=== PATIENT | male | born 1955 | race Caucasian/White ===

== ENCOUNTER 2022-07-17 08:06 | Outpatient (REF) | payer OTHER, SELFPAY ==
[2022-07-17 08:30] LABS: Hematocrit 42.2 % (42.0-52.0); Hemoglobin 13.9 g/dl (14.0-18.0); Mean Corpuscular HGB Conc 32.9 g/dl (31.0-36.0); Mean Corpuscular Hemoglobin 32.1 pg (27.0-33.0); Mean Corpuscular Volume 97.5 fL (80.0-98.0); Mean Platelet Volume 9.1 fL (9.4-12.4); Platelet Count 220 X10*3/uL (160-400); Red Blood Count 4.33 X10*6/uL (4.60-5.80); Red Cell Distribution Width 12.5 % (11.0-16.0); White Blood Count 5.2 X10*3/uL (4.8-10.8)
[2022-07-17 09:20] LABS: Alanine Aminotransferase 17 U/L (0-40); Albumin Level 4.1 g/dL (3.5-5.0); Alkaline Phosphatase 88 U/L (39-117); Anion Gap 12 (12-20); Aspartate Amino Transferase 20 U/L (5-37); Bilirubin Total 0.6 mg/dL (0.0-1.0); Blood Urea Nitrogen 33 mg/dL (9-16); Calcium 9.1 mg/dL (8.4-10.2); Carbon Dioxide 28 mmol/L (22-29); Chloride 101 mmol/L (96-108); Cholesterol 174 mg/dL; Estimated Glomerular Filt Rate 55; Glucose Fasting 148 mg/dL (60-99); HDL Cholesterol 46 mg/dL; LDL Cholesterol Calculated 103 mg/dl; Potassium 4.6 mmol/L (3.3-5.1); Sodium 136 mmol/L (135-145); TSH reflex Free T4 1.39 uIU/mL (0.32-4.0); Total Protein 6.5 g/dL (6.5-8.0); Triglycerides 125 mg/dL
[2022-07-17 10:05] LABS: Creatinine Urine 224.93 mg/dL; Microalbum/Creatinine Ratio Ur 7.5 ug/mg cr
== END 2022-07-17 08:07 | disposition home or self-care (01) ==
LOC: HO.LAB 08:06
PROVIDERS: PCP Physician Assistant; Visit Provider Physician Assistant
DX: E11.65 Type 2 diabetes mellitus with hyperglycemia (principal); I10 Essential (primary) hypertension
CPT/HCPCS: 36415; 80053; 80061; 82043; 84443; 85027

== ENCOUNTER → 2022-11-01 11:09 | Outpatient (BNVA) | payer OTHER, SELFPAY | PROVIDERS: PCP Physician Assistant; Referring Provider Physician Assistant; Visit Provider Nurse Practitioner Family | DX: Z13.89 Encounter for screening for other disorder (principal) ==

== ENCOUNTER → 2022-11-02 09:58 | Outpatient (BNVA) | payer OTHER, SELFPAY | PROVIDERS: PCP Physician Assistant; Visit Provider Dietitian, Registered | DX: E11.65 Type 2 diabetes mellitus with hyperglycemia (principal) | CPT/HCPCS: 97802 ==

== ENCOUNTER → 2022-12-07 11:26 | Outpatient (BNVA) | payer OTHER, SELFPAY | PROVIDERS: PCP Physician Assistant; Visit Provider Dietitian, Registered | DX: E11.65 Type 2 diabetes mellitus with hyperglycemia (principal); Z71.3 Dietary counseling and surveillance | CPT/HCPCS: 97803 ==

== ENCOUNTER 2022-12-25 07:30 | Outpatient (REF) | payer OTHER, SELFPAY ==
[2022-12-25 08:58] LABS: Hematocrit 36.1 % (42.0-52.0); Hemoglobin 12.4 g/dl (14.0-18.0); Mean Corpuscular HGB Conc 34.3 g/dl (31.0-36.0); Mean Corpuscular Hemoglobin 33.2 pg (27.0-33.0); Mean Corpuscular Volume 96.5 fL (80.0-98.0); Mean Platelet Volume 9.7 fL (9.4-12.4); Platelet Count 221 X10*3/uL (160-400); Red Blood Count 3.74 X10*6/uL (4.60-5.80); Red Cell Distribution Width 12.7 % (11.0-16.0); White Blood Count 5.6 X10*3/uL (4.8-10.8)
[2022-12-25 09:34] LABS: Alanine Aminotransferase 20 U/L (0-40); Albumin Level 3.9 g/dL (3.5-5.0); Alkaline Phosphatase 82 U/L (39-117); Anion Gap 10 (12-20); Aspartate Amino Transferase 20 U/L (5-37); Bilirubin Total 0.4 mg/dL (0.0-1.0); Blood Urea Nitrogen 37 mg/dL (9-16); Calcium 9.2 mg/dL (8.4-10.2); Carbon Dioxide 30 mmol/L (22-29); Chloride 106 mmol/L (96-108); Cholesterol 145 mg/dL; Estimated Glomerular Filt Rate 59; Glucose Fasting 146 mg/dL (60-99); HDL Cholesterol 34 mg/dL; LDL Cholesterol Calculated 89 mg/dl; Potassium 4.9 mmol/L (3.3-5.1); Sodium 141 mmol/L (135-145); Total Protein 6.2 g/dL (6.5-8.0); Triglycerides 110 mg/dL
[2022-12-25 09:55] LABS: TSH reflex Free T4 1.11 uIU/mL (0.32-4.0)
[2022-12-25 10:03] LABS: Creatinine Urine 149.29 mg/dL
[2022-12-29 16:38] LABS: Glutamic acid decarboxylase Ab <5 IU/mL (<5)
== END 2022-12-25 07:31 | disposition home or self-care (01) ==
LOC: HO.LAB 07:30
PROVIDERS: PCP Physician Assistant; Visit Provider Physician Assistant
DX: E11.65 Type 2 diabetes mellitus with hyperglycemia (principal); E78.2 Mixed hyperlipidemia; I10 Essential (primary) hypertension
CPT/HCPCS: 36415; 80053; 80061; 82043; 84443; 85027; 86341

== ENCOUNTER → 2023-01-31 10:53 | Outpatient (BNVA) | payer OTHER, SELFPAY | PROVIDERS: PCP Physician Assistant; Visit Provider Dietitian, Registered | DX: E11.65 Type 2 diabetes mellitus with hyperglycemia (principal) | CPT/HCPCS: 97803 ==

== ENCOUNTER 2023-06-20 06:02 | Outpatient (REF) | payer OTHER, SELFPAY ==
[2023-06-20 07:40] LABS: Hemoglobin 12.9 g/dl (14.0-18.0); Mean Corpuscular HGB Conc 33.1 g/dl (31.0-36.0); Mean Corpuscular Hemoglobin 32.4 pg (27.0-33.0); Mean Platelet Volume 9.9 fL (9.4-12.4); Platelet Count 228 X10*3/uL (160-400); Red Blood Count 3.98 X10*6/uL (4.60-5.80); Red Cell Distribution Width 12.4 % (11.0-16.0); White Blood Count 5.3 X10*3/uL (4.8-10.8)
[2023-06-20 08:33] LABS: Alanine Aminotransferase 17 U/L (0-40); Albumin Level 4.1 g/dL (3.5-5.0); Alkaline Phosphatase 80 U/L (39-117); Anion Gap 15 (12-20); Aspartate Amino Transferase 22 U/L (5-37); Bilirubin Total 0.3 mg/dL (0.0-1.0); Blood Urea Nitrogen 20 mg/dL (9-16); Calcium 9.3 mg/dL (8.4-10.2); Carbon Dioxide 26 mmol/L (22-29); Chloride 102 mmol/L (96-108); Cholesterol 155 mg/dL (<200); Estimated Glomerular Filt Rate > 60; Glucose Fasting 193 mg/dL (60-99); HDL Cholesterol 38 mg/dL (>40); LDL Cholesterol Calculated 92 mg/dL (<100); Potassium 4.1 mmol/L (3.3-5.1); Sodium 139 mmol/L (135-145); Total Protein 6.6 g/dL (6.5-8.0); Triglycerides 126 mg/dL (<150)
== END 2023-06-20 06:03 | disposition home or self-care (01) ==
LOC: HO.LAB 06:02
PROVIDERS: PCP Physician Assistant; Visit Provider Physician Assistant
DX: E11.65 Type 2 diabetes mellitus with hyperglycemia (principal); I10 Essential (primary) hypertension; E78.2 Mixed hyperlipidemia
CPT/HCPCS: 36415; 80053; 80061; 85027

== ENCOUNTER 2023-06-21 08:21 | Outpatient (AMB) | payer OTHER, SELFPAY ==
[2023-06-21 08:28] VITALS: BP 134/72; PULSE 81; O2SAT 98; BMI 33.0
--- NOTE | 2023-06-21 08:28 | A.OFFPC_ITS ---
Vital Signs 06/21/23 08:28 Height 5 ft 3.5 in Weight 189 lb BMI 33.0 BP 134/72 Blood Pressure Location Lt brachial Position Sitting Pulse 81 Pulse Source Pulse Oximeter Pulse Oximetry (%) 98 Oxygen Delivery Method Room Air Intake Visit Reasons: Follow up for Diabetes Allergies ciprofloxacin [CIPROFLOXACIN] Allergy (Severe, Verified 06/21/23 08:42) Anaphylaxis naproxen Adverse Reaction (Mild, Verified 06/21/23 08:42) Abdominal Pain Medication List - Last Reconciled 06/21/23 by Trey Lin PA-C albuterol sulfate 90 mcg/actuation 2 puffs inhalation Q6H PRN 30 days atorvastatin 40 mg PO DAILY 90 days bisacodyl (Dulcolax (bisacodyl)) 10 mg (2 x 5 mg) PO ONCE 1 day blood sugar diagnostic (FreeStyle Lite Strips) Testing once a day blood-glucose meter (FreeStyle [place] kit) Testing once a day fluticasone propionate 50 mcg/actuation (Allergy Relief (fluticasone)) 2 sprays intranasal DAILY hydrochlorothiazide 25 mg PO DAILY 90 days metformin 1,500 mg (1.5 x 1,000 mg) PO DAILY 90 days olmesartan 40 mg PO DAILY 90 days omeprazole 40 mg PO DAILY 90 days pioglitazone (Actos) 15 mg PO DAILY 90 days polyethylene glycol 3350 (Miralax) 238 grams PO ONCE Tobacco use date assessed: 12/27/22 Fall risk assessment: No Falls in past year Last assessed Fall Risk: 06/21/23 Dental Screening Dental Screen Date: 06/21/23 Did you have a dental visit in the last 12 months?: No Did you have a dental problem in the last 6 months where you did not have access to dental care?: No Was dental information given to patient?: No HPI Follow up for Diabetes HPI Details Patient is a 68-year-old male here today for follow-up visit? Patient has a past medical history significant for type 2 diabetes, hypertension, obesity, hyperlipidemia. Concerns--> .. Type 2 diabetes:? At last visit we discussed his? elevated A1c and increased his metforming to a 1000 b.i.d. he reports his sugars have been much better per patient. Unfortunately A1c elevated at 8.1 from 7.5. PLAN:? Will increase his metformin to a 1000 b.i.d.. .. Hypertension:? Blood pressure today in office acceptable..? He denies any headaches, chest discomforts are dizziness.? He does not monitor his blood pressure at home and will start doing so. .. Obesity: Has lost weight since last office visit? Patient does understand his BMI is over 30 will work on being more physically active and adapting to better eating habits to reduce weight .. GERD: Continues on PPI, has been avoiding? GI irritant foods. [facility] Medical History Diverticulitis Obstructive sleep apnea (adult) (pediatric) Obesity Diabetes mellitus type II, controlled Inflammatory arthritis Osteoarthritis of hand Erectile dysfunction Decreased libido Elevated prostate specific antigen [PSA] Umbilical hernia Essential (primary) hypertension Gastro-esophageal reflux disease without esophagitis Type 2 diabetes mellitus with hyperglycemia Generalized anxiety disorder Basal cell carcinoma of skin Family History Sister Intestinal cancer Mother No problems noted. Father No problems noted. Paternal Grandfather No problems noted. 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 1. Little interest or pleasure in doing things: not at all 2. Feeling down, depressed, or hopeless: not at all 3. Trouble falling or staying asleep, or sleeping too much: not at all 4. Feeling tired or having little energy: not at all 5. Poor appetite or overeating: not at all 6. Feeling bad about yourself - or that you are a failure or have let yourself or your family down: not at all 7. Trouble concentrating on things, such as reading the newspaper or watching television: not at all 8. Moving or speaking so slowly that other people could have noticed. Or the opposite - being so fidgety or restless that you have been moving around a lot more than usual: not at all 9. Thoughts that you would be better off or of hurting yourself in some way: not at all Total score: 0 Depression Screening Interpretation: Negative Depression Screening Done: Yes 62721 - PHQ-9 Billing: Yes Source: Developed by Drs. Refugio Eduardo, Mya Salamanca, Reid Inman and colleagues, with an educational sahil from [employer]. Thrive Questionnaire Date Thrive assessed: 12/27/22 AUDIT C Alcohol Use Questionnaire (AUDIT-C) 1. How often do you have a drink containing alcohol?: 2-3 times a week 2. How many drinks containing alcohol do you have on a typical day when you are drinking?: 1 or 2 3. How often do you have six or more drinks on one occasion?: Never Total Score: 3 ELVIE-7 AMB Questionnaire ELVIE-7 Date ELVIE - 7 assessed: 12/27/22 Source: Developed by Drs. Refugio Eduardo, Mya Salamanca, Reid Inman and colleagues, with an educational sahil from [employer]. ACT Questionnaire In the past 4 weeks, how much of the time did your asthma keep you from getting as much done at work, school or at home?: None of the time During the past 4 weeks, how often have you had shortness of breath?: Not at all During the past 4 weeks, how often did your asthma symptoms wake you up at night or earlier than usual in the morning?: Not at all During the past 4 weeks, how often have you had to use your rescue inhaler or nebulizer medication?: Not at all How would you rate your asthma control during the past 4 weeks?: Completely controlled ACT Interpretation: Negative Score: 25 Review of Systems Const Denies headache(s) Eyes Denies loss of vision ENT Denies vertigo, Denies dizziness, Denies headache(s) and Denies sore throat Card Denies chest pain, Denies leg edema and Denies lightheadedness Resp Denies cough, Denies hemoptysis and Denies wheezing GI Denies abdominal pain, Denies melena, Denies constipation, Denies diarrhea and Denies vomiting Denies dysuria, Denies urinary frequency and Denies urinary urgency Musc Denies arthralgias, Denies joint swelling, Denies numbness and Denies tingling Neuro Denies Abnormal speech present, Denies behavioral changes, Denies vertigo, Denies dizziness, Denies headache(s), Denies loss of vision, Denies memory loss, Denies numbness and Denies tingling Psych Denies anxiety, Denies behavioral changes, Denies depression, Denies memory loss and Denies panic attacks Aly/Lymph Denies easy bleeding and Denies easy bruising Aller/Immun Denies wheezing Physical exam (Primary Care) Vital Signs: Last Vital Signs Pulse 81 06/21/23 08:28 BP 134/72 06/21/23 08:28 Pulse Ox 98 06/21/23 08:28 Oxygen Delivery Method Room Air 06/21/23 08:28 BMI result Body Mass Index 33.0 Tobacco/Smoking Status: Tobacco use Status Tobacco use date assessed 12/27/22 06/21/23 08:29 Patient Tobacco Use Status Former Tobacco user 06/21/23 08:29 Tobacco use type Cigarette 06/21/23 08:29 e-Cigarette/Vaping Use Never Used 06/21/23 08:29 PHQ-9: PHQ-9 Score PHQ-9: Total score 0 06/21/23 08:29 Depression Screening Interpretation: Negative Thrive Assessment: Date of Thrive Assessment Date Thrive assessed 12/27/22 06/21/23 08:29 Const General: healthy appearing, no acute distress, alert and awake Nutritional Appearance: well nourished Orientation/consciousness: oriented to person, oriented to place and oriented to time HENMT Ears: TM's normal bilaterally General nose exam: Normal nasal mucous membranes and turbinates present Eyes Conjunctivae: conjunctivae normal Sclerae: sclerae normal Pupils: Equal, round and reactive pupils present Neck Neck: Yes no lymphadenopathy and Yes no JVD Thyroid: Thyroid normal Carotids: no bruits Resp Effort & Inspection: normal respiratory effort and not tachypneic Auscultation: no crackles, no rales, no rhonchi and no wheezes Cardio Rate: regular rate Rhythm: regular rhythm Heart sounds: no murmurs and normal S1 and S2 GI Palpation (GI): Soft to palpation, nontender, no hepatomegaly and no splenomegaly Auscultation: normal bowel sounds Skin General skin exam: no rashes or lesions noted and dry skin Neuro General: oriented to person, oriented to place and oriented to time Cranial nerves: Yes Equal, round and reactive pupils present Speech: No Abnormal speech present Gait exam (Neuro): Normal gait present Motor exam (neuro): no tremor noted Extrem Right upper extremity: full ROM Left upper extremity: full ROM Right lower extremity: full ROM; no edema Left lower extremity: full ROM; no edema Psych Mental Status: mental status grossly normal Speech and movement: Normal speech and movement present Affect: normal affect Attitude: cooperative Thought process: Normal thought process present Assessment and Plan Assessment & Plan (1) HTN (hypertension): Code(s): I10 - Essential (primary) hypertension Qualifiers: Hypertension type: primary hypertension Qualified Code(s): I10 - Essential (primary) hypertension Plan: Patient's blood pressure acceptable today office will continue current dose of antihypertensive medication with goal blood pressure to be below 140/90 (2) DMII (diabetes mellitus, type 2): Code(s): E11.9 - Type 2 diabetes mellitus without complications Qualifiers: Diabetes mellitus terminal superintendent insulin use: without fpc use Diabetes mellitus complication status: with hyperglycemia Qualified Code(s): E11.65 - Type 2 diabetes mellitus with hyperglycemia Plan: Patient's type 2 diabetes suboptimally controlled , todays A1c - 8.1 from 7.5 \will increase his metformin to 1000 b.i.d for better diabetes control... with goal A1c to be below 7.0 (3) HLD (hyperlipidemia): Code(s): E78.5 - Hyperlipidemia, unspecified Qualifiers: Hyperlipidemia type: mixed hyperlipidemia Qualified Code(s): E78.2 - Mixed hyperlipidemia Plan: Patient's lipid panel showing acceptable LDL and total cholesterol. Will continue statin therapy with goal LDL to be below 100. (4) Asthma: Code(s): J45.909 - Unspecified asthma, uncomplicated Qualifiers: Asthma severity: mild Asthma persistence: intermittent Asthma complication type: uncomplicated Qualified Code(s): J45.20 - Mild intermittent asthma, uncomplicated Plan: Has been well controlled lately. Does have asthma exacerbations during springtime. He does have an albuterol inhaler available to him. Continues with allergy medication. (5) Obese: Code(s): E66.9 - Obesity, unspecified Qualifiers: Obesity type: due to excess calories Obesity classification: adult class 2 (BMI 35 - 39.9) Serious obesity comorbidity presence: with serious comorbidity Body mass index: BMI 35.0-35.9 Qualified Code(s): E66.01 - Morbid (severe) obesity due to excess calories; Z68.35 - Body mass index [BMI] 35.0- 35.9, adult Plan: Patient has fortunately been able to lose weight due to better eating habits. Continues to follow a medical library assistant. He does understand his BMI remains above 30 will continue working on being more physically active to reduce his weight. Orders: Orders AMB Hemoglobin A1c Today Z13.9 - Encounter for screening, unspecified Lipid Panel 3 Months E78.2 - Mixed hyperlipidemia Microalbumin, Random (w Creat) 3 Months I10 - Essential (primary) hypertension Comprehensive [place]. Panel Fast 3 Months E11.65 - Type 2 diabetes mellitus with hyperglycemia Coding Level of Care Code Est Pt Level 4 (88984) Diagnoses Primary hypertension I10 Hypertension type: primary hypertension Type 2 diabetes mellitus with hyperglycemia, without long-term current use of insulin E11.65 Diabetes mellitus terminal superintendent insulin use: without terminal superintendent use Diabetes mellitus complication status: with hyperglycemia Mixed hyperlipidemia E78.2 Hyperlipidemia type: mixed hyperlipidemia Mild intermittent asthma without complication J45.20 Asthma severity: mild Asthma persistence: intermittent Asthma complication type: uncomplicated Class 2 severe obesity due to excess calories with serious comorbidity and body mass index (BMI) of 35.0 to 35.9 in adult E66.01; Z68.35 Obesity type: due to excess calories Obesity classification: adult class 2 (BMI 35 - 39.9) Serious obesity comorbidity presence: with serious comorbidity Body mass index: BMI 35.0-35.9
== END 2023-06-21 08:59 | disposition home or self-care (01) ==
PROVIDERS: PCP Physician Assistant; Visit Provider Physician Assistant
DX: E11.65 Type 2 diabetes mellitus with hyperglycemia (principal); E66.01 Morbid (severe) obesity due to excess calories; Z68.35 Body mass index [BMI] 35.0-35.9, adult; Z68.33 Body mass index [BMI] 33.0-33.9, adult; I10 Essential (primary) hypertension; E78.2 Mixed hyperlipidemia; J45.20 Mild intermittent asthma, uncomplicated
CPT/HCPCS: 99214

== ENCOUNTER 2023-07-26 08:27 | Outpatient (AMB) | payer OTHER, SELFPAY ==
[2023-07-26 08:38] VITALS: BMI 33.5
--- NOTE | 2023-07-26 08:38 | A.OFFVIS_ITS ---
Intake VS Expanded 07/26/23 08:38 Height 5 ft 3.5 in Weight 192 lb 3.889 oz BMI 33.5 Intake Visit Reasons: [id number] Allergies ciprofloxacin [CIPROFLOXACIN] Allergy (Severe, Verified 06/21/23 08:42) Anaphylaxis naproxen Adverse Reaction (Mild, Verified 06/21/23 08:42) Abdominal Pain Medication List - Last Reconciled 08/03/[address], LDN albuterol sulfate 90 mcg/actuation 2 puffs inhalation Q6H PRN 30 days atorvastatin 40 mg PO DAILY 90 days bisacodyl (Dulcolax (bisacodyl)) 10 mg (2 x 5 mg) PO ONCE 1 day blood sugar diagnostic (FreeStyle Lite Strips) Testing once a day blood-glucose meter (FreeStyle [place] kit) Testing once a day fluticasone propionate 50 mcg/actuation (Allergy Relief (fluticasone)) 2 sprays intranasal DAILY hydrochlorothiazide 25 mg PO DAILY 90 days metformin 1,500 mg (1.5 x 1,000 mg) PO DAILY 90 days multivitamin with iron 1 tab PO DAILY olmesartan 40 mg PO DAILY 90 days omeprazole 40 mg PO DAILY 90 days pioglitazone (Actos) 15 mg PO DAILY 90 days polyethylene glycol 3350 (Miralax) 238 grams PO ONCE HPI Nutrition Presentation Details Pt presents for MNT f/u for T2DM Pt reports doing well, working on diet modifications. Challenges: inc appetite for higher sugar foods at night food frequency fruits: 1-2 x/day dairy: 3-4 serving/d fish: 1/week beverages: water, milk , juice diluted with water Reports taking MVI daily Most Recent Diabetes Results: Microalb/Creat Ratio 6.0 ug/mg cr 12/25/22 Cholesterol 155 mg/dL (<200) 06/20/23 HDL Cholesterol 38 mg/dL (>40) L 06/20/23 Triglycerides 126 mg/dL (<150) 06/20/23 Creatinine 1.08 mg/dL (0.5-1.4) 06/20/23 Blood Urea Nitrogen 20 mg/dL (9-16) H 06/20/23 Sodium 139 mmol/L (135-145) 06/20/23 Potassium 4.1 mmol/L (3.3-5.1) 06/20/23 Chloride 102 mmol/L (96-108) 06/20/23 Carbon Dioxide 26 mmol/L (22-29) 06/20/23 Calcium 9.3 mg/dL (8.4-10.2) 06/20/23 AST 22 U/L (5-37) 06/20/23 ALT 17 U/L (0-40) 06/20/23 Total Protein 6.6 g/dL (6.5-8.0) 06/20/23 Albumin 4.1 g/dL (3.5-5.0) 06/20/23 [facility] Medical History Diverticulitis Obstructive sleep apnea (adult) (pediatric) Obesity Diabetes mellitus type II, controlled Inflammatory arthritis Osteoarthritis of hand Erectile dysfunction Decreased libido Elevated prostate specific antigen [PSA] Umbilical hernia Essential (primary) hypertension Gastro-esophageal reflux disease without esophagitis Type 2 diabetes mellitus with hyperglycemia Generalized anxiety disorder Basal cell carcinoma of skin Family History Sister Intestinal cancer Mother No problems noted. Father No problems noted. Paternal Grandfather No problems noted. 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 Used wt : 94 kg (10/2022) (weight dec to 87 kg on 07/2023) Est kcal as per MSJ: 1928 (40% carb, 30% fat/prot) Est fluid needs: 2350 ml/d (25 ml/kg bw) Rec fiber: increase to 8-10 g per day and gradually increase to 35 g or as tolerated Rec Na: < 2000 mg /d Educate patient on: (R= Reviewed, V = verbalizes understanding N/R= Needs review N/A= not applicable) * Food sources of carbohydrates and serving adequate serving sizes : R * Difference between complex carbohydrates and simple carbohydrates, role of f iber: R * Differences between fats (MUFA/PUFA/saturated fats, trans fats) and food sources of various fats: R * Food sources of sodium and salt and healthy modifications for heart health and kidney health: R * Vitamins and minerals: R * How to interpret food labels: R V * Healthy Plate method concept: R V * Physical activity: benefits and precaution: R V * hypoglycemia prevention and treatment: R Patient Instructions: Work on reducing your total carb as snack at bedtime to less than 30 g and include 1-2 oz of protein: example : yogurt with fruit or 1 cup of milk and 4 crackers iwth peanut butter or glucerna/hunger smart shake - see list of options listed Coding Level of Care Code Nutr Indiv Subseq (14973) Diagnoses Type 2 diabetes mellitus with hyperglycemia, without long-term current use of insulin E11.65 Diabetes mellitus complication status: with hyperglycemia Diabetes mellitus j2ee android developer insulin use: without j2ee android developer use Time Spent (min) 30
== END 2023-07-26 09:10 | disposition home or self-care (01) ==
PROVIDERS: PCP Physician Assistant; Visit Provider Dietitian, Registered
DX: E11.65 Type 2 diabetes mellitus with hyperglycemia (principal)

== ENCOUNTER → 2023-07-26 08:27 | Outpatient (BNVA) | payer OTHER, SELFPAY | PROVIDERS: PCP Physician Assistant; Visit Provider Dietitian, Registered | DX: E11.65 Type 2 diabetes mellitus with hyperglycemia (principal); Z71.3 Dietary counseling and surveillance | CPT/HCPCS: 97803 ==

== ENCOUNTER 2023-09-01 08:17 | Outpatient (AMB) | payer OTHER, SELFPAY ==
[2023-09-01 08:38] VITALS: BMI 33.2
--- NOTE | 2023-09-01 08:38 | A.OFFVIS_ITS ---
Intake VS Expanded 09/01/23 08:38 Height 5 ft 3.5 in Weight 190 lb 11.198 oz BMI 33.2 Intake Visit Reasons: T2DM/CONFIRMED Allergies ciprofloxacin [CIPROFLOXACIN] Allergy (Severe, Verified 06/21/23 08:42) Anaphylaxis naproxen Adverse Reaction (Mild, Verified 06/21/23 08:42) Abdominal Pain HPI Nutrition Presentation Details Pt presents for MNT for T2DM Today will review low sodium food options. Pt reports doing well overall. Most Recent Diabetes Results: Microalb/Creat Ratio 6.0 ug/mg cr 12/25/22 Cholesterol 155 mg/dL (<200) 06/20/23 HDL Cholesterol 38 mg/dL (>40) L 06/20/23 Triglycerides 126 mg/dL (<150) 06/20/23 Creatinine 1.08 mg/dL (0.5-1.4) 06/20/23 Blood Urea Nitrogen 20 mg/dL (9-16) H 06/20/23 Sodium 139 mmol/L (135-145) 06/20/23 Potassium 4.1 mmol/L (3.3-5.1) 06/20/23 Chloride 102 mmol/L (96-108) 06/20/23 Carbon Dioxide 26 mmol/L (22-29) 06/20/23 Calcium 9.3 mg/dL (8.4-10.2) 06/20/23 AST 22 U/L (5-37) 06/20/23 ALT 17 U/L (0-40) 06/20/23 Total Protein 6.6 g/dL (6.5-8.0) 06/20/23 Albumin 4.1 g/dL (3.5-5.0) 06/20/23 [facility] Medical History Diverticulitis Obstructive sleep apnea (adult) (pediatric) Obesity Diabetes mellitus type II, controlled Inflammatory arthritis Osteoarthritis of hand Erectile dysfunction Decreased libido Elevated prostate specific antigen [PSA] Umbilical hernia Essential (primary) hypertension Gastro-esophageal reflux disease without esophagitis Type 2 diabetes mellitus with hyperglycemia Generalized anxiety disorder Basal cell carcinoma of skin Family History Sister Intestinal cancer Mother No problems noted. Father No problems noted. Paternal Grandfather No problems noted. 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 [employer] Cognitive needs: No Hearing needs: No Vision needs: Yes (Glasses) Assessment & Plan Assessment & Plan (1) DMII (diabetes mellitus, type 2): Comment: A1c 7.3% (12/2022) 8.5% ( 07/2022) , BMI 33.3 (08/2023), 35.5 (10/2022) 33.5 (07/2023) Code(s): E11.9 - Type 2 diabetes mellitus without complications Qualifiers: Diabetes mellitus skilled nursing insulin use: without long term care phlebotomist use Diabetes mellitus complication status: with hyperglycemia Qualified Code(s): E11.65 - Type 2 diabetes mellitus with hyperglycemia Plan: Reviewed 2000 brandee meal plan and lower carb/nutrient dense bedtime snack options ? Used wt : 94 kg (10/2022) (weight dec to 87 kg on 07/2023) Est kcal as per MSJ: 1928 (40% carb, 30% fat/prot) Est fluid needs: 2350 ml/d (25 ml/kg bw) Rec fiber: increase to 8-10 g per day and gradually increase to 35 g or as tolerated Rec Na: < 2000 mg /d Educate patient on: (R= Reviewed, V = verbalizes understanding N/R= Needs review N/A= not applicable) * Food sources of carbohydrates and serving adequate serving sizes : R * Difference between complex carbohydrates and simple carbohydrates, role of fiber: R * Differences between fats (MUFA/PUFA/saturated fats, trans fats) and food sources of various fats: R * Food sources of sodium and salt and healthy modifications for heart health and kidney health: R * Vitamins and minerals: R , V * How to interpret food labels: R V * Healthy Plate method concept: R V * Physical activity: benefits and precaution: R V * hypoglycemia prevention and treatment: R, V Patient Instructions: Opt for foods with lower amount of sodium- choose unsalted or lightly salted crackers/snack foods Have at least 2 fruits a day in place of pastries Keep hydrated, choosing water, low sugar beverages Coding Level of Care Code Nutr Indiv Subseq (74125) Diagnoses Type 2 diabetes mellitus with hyperglycemia, without long-term current use of insulin E11.65 Diabetes mellitus long term care phlebotomist insulin use: without long term care phlebotomist use Diabetes mellitus complication status: with hyperglycemia Time Spent (min) 20
== END 2023-09-01 09:28 | disposition home or self-care (01) ==
PROVIDERS: PCP Physician Assistant; Visit Provider Dietitian, Registered
DX: E11.65 Type 2 diabetes mellitus with hyperglycemia (principal)

== ENCOUNTER → 2023-09-01 08:17 | Outpatient (BNVA) | payer OTHER, SELFPAY | PROVIDERS: PCP Physician Assistant; Visit Provider Dietitian, Registered | DX: E11.65 Type 2 diabetes mellitus with hyperglycemia (principal); Z71.3 Dietary counseling and surveillance | CPT/HCPCS: 97803 ==

== ENCOUNTER 2023-09-17 07:14 | Outpatient (REF) | payer OTHER, SELFPAY ==
[2023-09-17 08:24] LABS: Creatinine Urine 118.98 mg/dL; Microalbum/Creatinine Ratio Ur 9.2 ug/mg cr (<30)
[2023-09-17 09:26] LABS: Alanine Aminotransferase 19 U/L (0-40); Albumin Level 4.1 g/dL (3.5-5.0); Alkaline Phosphatase 71 U/L (39-117); Anion Gap 11 (12-20); Aspartate Amino Transferase 21 U/L (5-37); Bilirubin Total 0.4 mg/dL (0.0-1.0); Blood Urea Nitrogen 34 mg/dL (9-16); Calcium 9.6 mg/dL (8.4-10.2); Carbon Dioxide 29 mmol/L (22-29); Chloride 104 mmol/L (96-108); Cholesterol 162 mg/dL (<200); Estimated Glomerular Filt Rate > 60; Glucose Fasting 190 mg/dL (60-99); HDL Cholesterol 40 mg/dL (>40); LDL Cholesterol Calculated 92 mg/dL (<100); Potassium 4.7 mmol/L (3.3-5.1); Sodium 139 mmol/L (135-145); Total Protein 6.8 g/dL (6.5-8.0); Triglycerides 154 mg/dL (<150)
== END 2023-09-17 07:15 | disposition home or self-care (01) ==
LOC: HO.LAB 07:14
PROVIDERS: PCP Physician Assistant; Visit Provider Physician Assistant
DX: E11.65 Type 2 diabetes mellitus with hyperglycemia (principal); I10 Essential (primary) hypertension; E78.2 Mixed hyperlipidemia
CPT/HCPCS: 36415; 80053; 80061; 82043; 82570

== ENCOUNTER 2023-09-21 08:14 | Outpatient (AMB) | payer OTHER, SELFPAY ==
--- NOTE | 2023-09-21 08:23 | MHC.PC.OV ---
Vital Signs 09/21/23 08:26 Height 5 ft 3.5 in Weight 187 lb BMI 32.6 BP 120/72 Blood Pressure Location Lt brachial Position Sitting Pulse 75 Pulse Source Pulse Oximeter Pulse Oximetry (%) 100 Oxygen Delivery Method Room Air Intake Visit Reasons: 3 Month F/U Intake Note: Patient here for a 3 month follow up Community Services Officer Required: No Accompanied by: Self / Same As Patient Allergies ciprofloxacin [CIPROFLOXACIN] Allergy (Severe, Verified 09/21/23 08:51) Anaphylaxis naproxen Adverse Reaction (Mild, Verified 09/21/23 08:51) Abdominal Pain Medication List - Last Reconciled 09/21/23 by Trey Lin PA-C albuterol sulfate 90 mcg/actuation 2 puffs inhalation Q6H PRN 30 days atorvastatin 40 mg PO DAILY 90 days benzonatate 200 mg PO TID 5 days bisacodyl (Dulcolax (bisacodyl)) 10 mg (2 x 5 mg) PO ONCE 1 day blood sugar diagnostic (FreeStyle Lite Strips) Testing once a day blood-glucose meter (FreeStyle [place] kit) Testing once a day fluticasone propionate 50 mcg/actuation (Allergy Relief (fluticasone)) 2 sprays intranasal DAILY hydrochlorothiazide 25 mg PO DAILY 90 days metformin 1,500 mg (1.5 x 1,000 mg) PO DAILY 90 days multivitamin with iron 1 tab PO DAILY olmesartan 40 mg PO DAILY 90 days omeprazole 40 mg PO DAILY 90 days pioglitazone (Actos) 15 mg PO DAILY 90 days polyethylene glycol 3350 (Miralax) 238 grams PO ONCE Tobacco use date assessed: 09/21/23 Fall risk assessment: No Falls in past year Last assessed Fall Risk: 09/21/23 Dental Screening Dental Screen Date: 09/21/23 Did you have a dental visit in the last 12 months?: No Did you have a dental problem in the last 6 months where you did not have access to dental care?: No Was dental information given to patient?: Patient has dentist HPI 3 Month F/U HPI Details Patient is a 68-year-old male here today for follow-up visit? Patient has a past medical history significant for type 2 diabetes, hypertension, obesity, hyperlipidemia. .. Type 2 diabetes:? At last visit we discussed his? elevated A1c and increased his metforming to a 1000 b.i.d. Unfortunately A1c still elevated above 8. PLAN:? Will add on glipizide 5 mg for short term. .. Hypertension:? Blood pressure today in office acceptable..? He denies any headaches, chest discomforts are dizziness.? He does not monitor his blood pressure at home and will start doing so. .. Chronically elevated PSA: Followed by Urology, denies any urinary symptoms. Has chronically elevated PSA around 13. Reports he has had biopsies an evaluations though no cancer. .. Obesity: Has lost weight since last office visit? Patient does understand his BMI is over 30 will work on being more physically active and adapting to better eating habits to reduce weight .. GERD: Continues on PPI, has been avoiding? GI irritant foods. Laboratory Tests 12/25/22 12/27/22 06/20/23 08:02 08:34 06:18 RBC 3.98 L Hgb 12.9 L Creatinine 1.08 Fasting Glucose 146 H 193 H Hgb A1c (Clinic) 7.3 H Cholesterol LDL Cholesterol, C alc Urine Microalbumin 06/20/23 09/17/23 09/17/23 06:18 07:25 07:29 RBC Hgb Creatinine Fasting Glucose 190 H Hgb A1c (Clinic) Cholesterol 155 LDL Cholesterol, C alc 92 Urine Microalbumin 11.0 09/21/23 08:32 RBC Hgb Creatinine Fasting Glucose Hgb A1c (Clinic) 8.4 H Cholesterol LDL Cholesterol, C alc Urine Microalbumin [facility] Medical History Diverticulitis Obstructive sleep apnea (adult) (pediatric) Obesity Diabetes mellitus type II, controlled Inflammatory arthritis Osteoarthritis of hand Erectile dysfunction Decreased libido Elevated prostate specific antigen [PSA] Umbilical hernia Essential (primary) hypertension Gastro-esophageal reflux disease without esophagitis Type 2 diabetes mellitus with hyperglycemia Generalized anxiety disorder Basal cell carcinoma of skin Surgical History History of nasal surgery History of umbilical hernia repair Family History Sister Intestinal cancer Mother No problems noted. Father No problems noted. Paternal Grandfather No problems noted. 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 1. Little interest or pleasure in doing things: not at all 2. Feeling down, depressed, or hopeless: not at all 3. Trouble falling or staying asleep, or sleeping too much: not at all 4. Feeling tired or having little energy: not at all 5. Poor appetite or overeating: not at all 6. Feeling bad about yourself - or that you are a failure or have let yourself or your family down: not at all 7. Trouble concentrating on things, such as reading the newspaper or watching television: not at all 8. Moving or speaking so slowly that other people could have noticed. Or the opposite - being so fidgety or restless that you have been moving around a lot more than usual: not at all 9. Thoughts that you would be better off or of hurting yourself in some way: not at all Total score: 0 Depression Screening Interpretation: Negative Depression Screening Done: Yes 06007 - PHQ-9 Billing: Yes Source: Developed by Drs. Refugio Eduardo, Mya Salamanca, Reid Inman and colleagues, with an educational sahil from [employer]. Thrive Questionnaire Date Thrive assessed: 09/21/23 I am a: Patient What is your living situation today?: I have a steady place to live Within the past 12 months, did the food you bought not last and you didn't have the money to get more?: Never true Within the past 12 months, did you worry whether your food would run out before you got money to buy more?: Never true Do you have trouble paying for medicines?: No Do you have trouble getting transportation to medical appointments?: No Do you have trouble paying your heating and electricity bill?: No Do you have trouble taking care of your child, family member or friend?: No Do you have trouble with day-to-day activities such as bathing, preparing meals, shopping, managing finances, etc.?: No Are you currently unemployed and looking for a job?: No Are you interested in more education?: No Please select the resources that you would like help with: None Currently or been in a relationship where the following occur: no concerns reported THRIVE Score: 0 AUDIT C Alcohol Use Questionnaire (AUDIT-C) 1. How often do you have a drink containing alcohol?: Monthly or less 2. How many drinks containing alcohol do you have on a typical day when you are drinking?: 1 or 2 3. How often do you have six or more drinks on one occasion?: Never Total Score: 1 ELVIE-7 AMB Questionnaire ELVIE-7 Date ELVIE - 7 assessed: 09/21/23 Feeling nervous, anxious, or on edge: 0 = Not at all Not being able to stop or control worryin = Not at all Worrying too much about different things: 0 = Not at all Trouble relaxin = Not at all Being so restless that it is hard to sit still: 0 = Not at all Becoming easily annoyed or irritable: 0 = Not at all Feeling afraid as if something awful might happen: 0 = Not at all Total ELVIE-7 score (0-4 normal; 5-9 mild; 10-14 moderate; 15-21 severe): 0 Source: Developed by Drs. Refugio Eduardo, Mya Salamanca, Reid Inman and colleagues, with an educational sahil from [employer]. ELVIE-7 Assessment Billing ELVIE-7 Assessment Tool: ELVIE-7 Assessment 67951 Physical exam (Primary Care) Vital Signs: Last Vital Signs Pulse 75 09/21/23 08:26 BP 120/72 09/21/23 08:26 Pulse Ox 100 09/21/23 08:26 Oxygen Delivery Method Room Air 09/21/23 08:26 BMI result Body Mass Index 32.6 Tobacco/Smoking Status: Tobacco use Status Tobacco use date assessed 09/21/23 09/21/23 08:32 Patient Tobacco Use Status Former Tobacco user 09/21/23 08:24 Tobacco use type Cigarette 09/21/23 08:24 e-Cigarette/Vaping Use Never Used 09/21/23 08:24 PHQ-9: PHQ-9 Score PHQ-9: Total score 0 09/21/23 08:32 Depression Screening Interpretation: Negative Thrive Assessment: Date of Thrive Assessment Date Thrive assessed 09/21/23 09/21/23 08:32 Currently or been in a relationship where the following occur: no concerns reported Results AMB Hemoglobin A1c AMB Hemoglobin A1c 8.4 % Last Edit by PATSY Morgan on 09/21/23 08:33 Results Reviewed Results Reviewed: Laboratory Last Values Hgb A1c (Clinic) 8.4 % (4.0-6.0) H 09/21/23 08:32 Assessment and Plan Assessment & Plan (1) DMII (diabetes mellitus, type 2): Comment: A1c 7.3% (12/2022) 8.5% ( 07/2022) , BMI 33.3 (08/2023), 35.5 (10/2022) 33.5 (07/2023) Code(s): E11.9 - Type 2 diabetes mellitus without complications Qualifiers: 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 He plans on going to the gym more often and implementing a stricter diabetic diet Goal A1c is to be below 7.0 (2) HTN (hypertension): Code(s): I10 - Essential (primary) hypertension Qualifiers: Hypertension type: primary hypertension Qualified Code(s): I10 - Essential (primary) hypertension Plan: Patient's blood pressure acceptable today office will continue current dose of antihypertensive medication with goal blood pressure to be below 140/90 (3) HLD (hyperlipidemia): Code(s): E78.5 - Hyperlipidemia, unspecified Qualifiers: Hyperlipidemia type: mixed hyperlipidemia Qualified Code(s): E78.2 - Mixed hyperlipidemia Plan: Patient's lipid panel showing acceptable LDL and total cholesterol. Will reduce his atorvastatin to 20 mg as there could be an adverse reaction type 2 diabetes. Goal LDL to remain below 100 (4) Asthma: Code(s): J45.909 - Unspecified asthma, uncomplicated Qualifiers: Asthma severity: mild Asthma persistence: intermittent Asthma complication type: uncomplicated Qualified Code(s): J45.20 - Mild intermittent asthma, uncomplicated Plan: Has been well controlled lately. Does have asthma exacerbations during springtime. He does have an albuterol inhaler available to him. Continues with allergy medication. 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 He does understand his BMI remains above 30 will continue working on being more physically active to reduce his weight. Orders: Orders Comprehensive [place]. Panel Fast Today E11.65 - Type 2 diabetes mellitus with hyperglycemia AMB Hemoglobin A1c Today E11.9 - Type 2 diabetes mellitus without complications Microalbumin, Random (w Creat) Today E11.65 - Type 2 diabetes mellitus with hyperglycemia Lipid Panel Today E78.2 - Mixed hyperlipidemia Prostate Specific Antigen Scr Today R97.20 - Elevated prostate specific antigen [PSA], Z12.5 - Encounter for screening for malignant neoplasm of prostate Medications: New atorvastatin 20 mg PO DAILY 90 days 90 tabs 1RF E78.2 - Mixed hyperlipidemia glipizide ER 5 mg PO DAILY 90 days 90 tabs 0RF E11.65 - Type 2 diabetes mellitus with hyperglycemia Changed From metformin takes 1000mg in AM and 500mg in PM 1,500 mg (1.5 x 1,000 mg) PO DAILY 90 days 135 tabs 1RF E11.65 - Type 2 diabetes mellitus with hyperglycemia To metformin 1,000 mg PO BID 90 days 180 tabs 1RF E11.65 - Type 2 diabetes mellitus with hyperglycemia Discontinued atorvastatin Discontinued Reason: Doctor's Order 40 mg PO DAILY 90 days 90 tabs 2RF E78.2 - Mixed hyperlipidemia Coding Level of Care Code Est Pt Level 4 (84345) Diagnoses Type 2 diabetes mellitus with hyperglycemia, without long-term current use of insulin E11.65 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9) Serious obesity comorbidity presence: with serious comorbidity Body mass index: BMI 35.0-35.9 Additional Codes ELVIE-7 Assessment Billing - ELVIE-7 Assessment Tool: ELVIE-7 Assessment 68281 ([id number])
[2023-09-21 08:26] VITALS: BP 120/72; PULSE 75; O2SAT 100; BMI 32.6
== END 2023-09-21 09:07 | disposition home or self-care (01) ==
PROVIDERS: PCP Physician Assistant; Visit Provider Physician Assistant
DX: E11.65 Type 2 diabetes mellitus with hyperglycemia (principal); E66.01 Morbid (severe) obesity due to excess calories; E11.9 Type 2 diabetes mellitus without complications; Z68.35 Body mass index [BMI] 35.0-35.9, adult; I10 Essential (primary) hypertension; E78.2 Mixed hyperlipidemia; J45.20 Mild intermittent asthma, uncomplicated
CPT/HCPCS: 83036; 99214

== ENCOUNTER 2023-10-24 09:28 | Day surgery (SDC) | payer OTHER, SELFPAY ==
--- NOTE | 2023-10-20 10:59 | HO.ANESPROP2 ---
Documented by User: Karen Quintana NP 10/20/23 11:00 HPI - Anesthesia Eval Consult details Narrative: 68yo M for Upper Endoscopy and Colonoscopy [facility] Active Problems Active Problems: All Active Problems (Updated 09/13/23 @ 15:28 by Judy Cornelius, RD, LDN) Bronchitis (Acute) Asthma (Acute) Elevated PSA (Acute) GERD (gastroesophageal reflux disease) (Acute) HLD (hyperlipidemia) (Acute) Obese (Acute) HTN (hypertension) (Acute) DMII (diabetes mellitus, type 2) (Acute) Colon cancer screening (Acute) Past Medical History Medical History Diverticulitis Obstructive sleep apnea (adult) (pediatric) Obesity Diabetes mellitus type II, controlled Inflammatory arthritis Osteoarthritis of hand Erectile dysfunction Decreased libido Elevated prostate specific antigen [PSA] Umbilical hernia Essential (primary) hypertension Gastro-esophageal reflux disease without esophagitis Type 2 diabetes mellitus with hyperglycemia Generalized anxiety disorder Basal cell carcinoma of skin Family History Family History Sister Intestinal cancer Mother No problems noted. Father No problems noted. Paternal Grandfather No problems noted. 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[employer] Current occupational exposures/hazards: No Cognitive needs: No Hearing needs: No Vision needs: Yes (Glasses) Meds Allergies Allergy/AdvReac Type Severity Reaction Status Date / Time ciprofloxacin [CIPROFLOXACIN] Allergy Severe Anaphylaxis Verified 09/21/23 08:51 naproxen AdvReac Mild Abdominal Verified 09/21/23 08:51 Pain Home Medications Medication Instructions Recorded Confirmed Last Taken Type fluticasone propionate 50 2 spray intranasal DAILY 05/11/22 10/24/23 Unknown History mcg/actuation nasal spray,suspension (Allergy Relief (fluticasone)) multivitamin with iron 1 tab PO DAILY 08/03/23 10/24/23 Unknown History Exam Pertinent Lab Results Pertinent Lab Results: Laboratory Tests 06/20/23 09/17/23 06:18 07:29 WBC 5.3 Hgb 12.9 L Hct 39.0 L Plt Count 228 Sodium 139 Potassium 4.7 Chloride 104 Carbon Dioxide 29 BUN 34 H Creatinine 1.15 Assessment and Plan Assessment Anesthesia Assessment: Chart Reviewed Documented by User: La Nena De Leon MD 10/24/23 10:32 [facility] Past Medical History Medical History Diverticulitis Obstructive sleep apnea (adult) (pediatric) Obesity Diabetes mellitus type II, controlled Inflammatory arthritis Osteoarthritis of hand Erectile dysfunction Decreased libido Elevated prostate specific antigen [PSA] Umbilical hernia Essential (primary) hypertension Gastro-esophageal reflux disease without esophagitis Type 2 diabetes mellitus with hyperglycemia Generalized anxiety disorder Basal cell carcinoma of skin Family History Family History Sister Intestinal cancer Mother No problems noted. Father No problems noted. Paternal Grandfather No problems noted. Family history of problems with anesthesia: No Surgical History Surgical History History of nasal surgery History of umbilical hernia repair History of Problems with Anesthesia: No Social History Social History Housing: House Alcohol intake: current Alcohol intake frequency: 0-2 drinks per day Alcohol type: wine Patient Tobacco Use Status: Former Tobacco user Quit Date: 1990 Tobacco use type: Cigarette e-Cigarette/Vaping Use: Never Used Second Hand Smoke Exposure: No Are you DNR?: No Advance Directives: No Advance Directives Information Provided: Yes Recently lost weight without trying: No service: No Current occupational status: employed 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[employer] Current occupational exposures/hazards: No Cognitive needs: No Hearing needs: No Vision needs: Yes (Glasses) Meds Allergies Allergy/AdvReac Type Severity Reaction Status Date / Time ciprofloxacin [CIPROFLOXACIN] Allergy Severe Anaphylaxis Verified 09/21/23 08:51 naproxen AdvReac Mild Abdominal Verified 09/21/23 08:51 Pain Home Medications Medication Instructions Recorded Confirmed Last Taken Type fluticasone propionate 50 2 spray intranasal DAILY 05/11/22 10/24/23 Unknown History mcg/actuation nasal spray,suspension (Allergy Relief (fluticasone)) multivitamin with iron 1 tab PO DAILY 08/03/23 10/24/23 Unknown History Exam Airway Mallampati Class: II TM Dist: >3cm Neck ROM: Full Heart: rrr Lungs: cta Assessment and Plan Assessment Anesthesia Assessment: Anesthesia Plan Discussed Final Anesthetic Review Family History of Problems with Anesthesia: No History of Problems with Anesthesia: No NPO: Yes ASA Class: III Final Preanesthetic Review: No Changes in Pt Med Stat, Meds/Allgs Chart Reviewed and Consent Obtained/Reviewed Patient Risk: Intermediate Procedure Risk: Intermediate Anesthetic Plan Anesthetic Plan: MAC: Disposition: Standard PACU
[2023-10-24 09:55] VITALS: BP 167/94; PULSE 88; RESP 20; TEMP 36.6; O2SAT 97; BMI 32.9
[2023-10-24] MEDS: Lactated Ringers 1,000 ML 100 ML IVCONT (10:16)
[2023-10-24 10:25] LABS: Glucose, Whole Blood 137 mg/dL (60-115)
--- NOTE | 2023-10-24 11:23 | P.HPSUR_ITS ---
Pre-Procedural Eval Section A - 24 Hr Update-Section A only Date of Service: 10/24/23 The patient is an INPATIENT: No The patient has been examined within 24 hours of the surgical procedure. The History & Physical has been completed within 30 days and I have reviewed it.: No Section B - Complete if H&P > 30 days Chief Complaint: screening, GERD, abdominal bloating Relevant Social History: Tobacco Use (Former smoker) Present Medications: see Short Stay Collaborative assessment Medical History: Significant History (Diabetes mellitus type II, controlled Diverticulitis Elevated prostate specific antigen [PSA] Erectile dysfunction Essential (primary) hypertension Gastro-esophageal reflux disease without esophagitis Generalized anxiety disorder Inflammatory arthritis Obesity O bstructive sleep apnea (adult) (pediat) History of Previous Operations: Relevant previous surgery/procedure and date(s) (History of colonoscopy, history of umbilical hernia repair) Allergies: Allergies Allergy/AdvReac Type Severity Reaction Status Date / Time ciprofloxacin [CIPROFLOXACIN] Allergy Severe Anaphylaxis Verified 09/21/23 08:51 naproxen AdvReac Mild Abdominal Verified 09/21/23 08:51 Pain Review of Systems Sugical H&P ROS: Negative: Constitution, Cardiovascular and Respiratory and Yes, Specify: Gastrointestinal (GERD) Exam Surgical H&P Exam: Normal: Heart, Normal: Lungs, Normal: Extremities and Normal: Abdomen Plan Diagnosis/Plan: Unchanged I have reviewed the history and physical and performed a pertinent physical examination on my patient. No changes have occurred unless specified. Time Spent With Patient Time: Total time managing care of this patient today ____ minutes.
--- NOTE | 2023-10-24 11:29 | P.OP_ITS ---
Operative Note Operative Note Date of Service: 10/24/23 Narrative: FLEXIBLE TRANSORAL UPPER GASTROINTESTINAL ENDOSCOPY WITH BIOPSIES AND COLONOSCOPY TILL CECUM WITH BIOPSIES AND SNARE POLYPECTOMY Pre-op diagnosis: Colon cancer screening, GERD Post-op diagnosis: GERD, gastritis, Colon Polyps, Diverticulosis, hemorrhoids Endoscopist:Richard Mahan MD Anesthesia:?MAC UPPER ENDOSCOPY Consent: Indications for the procedure and potential complications of bleeding, perforation, reaction to medications and missed diagnosis were discussed with the patient and informed consent was obtained. Instrument: Olympus GIF H 190 mid size upper endoscope Monitoring: Vital signs and clinical assessment, continuous EKG monitoring, Pulse oximetry, Carbon Dioxide monitoring and blood pressure monitoring were done throughout the procedure. Procedure: The patient was placed in the left lateral decubitis position and pre-procedure medications were administered and a bite block was placed. The endoscope was inserted into the mouth and advanced under direct vision to the third part of duodenum. A careful inspection was made as the upper endoscope was withdrawn including a retroflexed examination of the proximal stomach; Findings and interventions are described below. Findings: Larynx: Normal Esophagus: GE junction at 42 cms. A 1 cms tongue of possible Mccarty's - biopsied. Stomach: Moderate diffuse gastric erythema with nodular appearing mucosa in the gastric body - biopsies were obtained from the body and antrum. Grade 2 flap valve on retroflexed examination of the cardia. Duodenum: Normal bulb and descending duodenum Biopsies were obtained from descending duodenum to check for celiac sprue Intervention: Biopsies as noted above COLONOSCOPY PROCEDURE NOTE Instrument: Olympus PCF H 190 L variable stiffness pediatric colonoscope Monitoring: Vital signs and clinical assessment, intermittent blood pressure monitoring, continuous EKG monitoring, Pulse oximetry and Carbon Dioxide monitoring were done throughout the procedure. Please see anesthesia flowsheet. Colon withdrawl time was 22 minutes. Procedure: The patient was placed in the left lateral decubitis position and pre-procedure medications were administered. After a digital rectal examination of the ano-rectum, the video colonoscope was inserted into the rectum and advanced through the colon to the cecum. The colonoscope was slowly withdrawn in a retrograde panoramic fashion and the colon mucosa was carefully examined including a retroflexed view of the rectum. Findings and interventions are described below. Procedure Difficulty: without difficulty Findings: Terminal Ileum: Not evaluated Cecum: Normal Ascending Colon: Normal Transverse Colon: A 10 - 12 mm sessile polyp in the distal transverse colon - removed with a cold snare Descending Colon: Moderate diverticulosis Sigmoid Colon: A 7-8 mm sessile polyp - removed with a cold snare. Moderate diverticulosis Rectum: 12-15 mm sessile polyp - removed with a hot snare Ano-rectum: Moderate internal hemorrhoids Colon preparation: Good after copious irrigation. There was scattered undigested vegetable matter which could not be suctioned. [place] Bowel Preparation Scale Right colon; 2 Transverse colon: 2 Left colon; 2 (0 = Unprepared colon segment with mucosa not seen due to solid stool that cannot be cleared. 1 = Portion of mucosa of the colon segment seen, but other areas of the colon segment not well seen due to staining, residual stool and/or opaque liquid. 2 = Minor amount of residual staining, small fragments of stool and/or opaque liquid, but mucosa of colon segment seen well. 3 = Entire mucosa of colon segment seen well with no residual staining, small fragments of stool or opaque liquid) Impression and Post Procedure Diagnosis: Endoscopy Findings: ESOPHAGUS: A 1 cms tongue of possible Mccarty's - biopsied. STOMACH: Moderate diffuse gastric erythema with nodular appearing mucosa in the gastric body - biopsies were obtained from the antrum. DUODENUM: Normal - biopsied to check for celiac sprue Colonoscopy Findings: One small and two medium sized polyps were removed Moderate diverticulosis seen in the left colon Plan: Pt has a FU appointment on 11/07/23 with Judit Romo. Repeat Colonoscopy in 3-5 years if polyps are adenomatous and 10 year if polyps are hyperplastic. Above findings were reviewed with the patient and relevant handouts were given and the discharge area.
[2023-10-24 12:28] VITALS: BP 137/88; PULSE 76; RESP 16; TEMP 36.2; O2SAT 98
[2023-10-24 12:43] VITALS: BP 144/92; PULSE 75; RESP 16; TEMP 36.4; O2SAT 99
== END 2023-10-24 13:19 | disposition home or self-care (01) ==
PROVIDERS: PCP Physician Assistant; Visit Provider Internal Medicine Gastroenterology
PROC: (CPT 45385; principal; 2023-10-24 12:30)
DX: Z12.11 Encounter for screening for malignant neoplasm of colon (principal); D12.3 Benign neoplasm of transverse colon; D12.8 Benign neoplasm of rectum; K63.5 Polyp of colon; K57.30 Diverticulosis of large intestine without perforation or abscess without bleeding; K64.8 Other hemorrhoids; K21.9 Gastro-esophageal reflux disease without esophagitis; K29.50 Unspecified chronic gastritis without bleeding; G47.33 Obstructive sleep apnea (adult) (pediatric); I10 Essential (primary) hypertension; E11.65 Type 2 diabetes mellitus with hyperglycemia; Z79.84 Long term (current) use of oral hypoglycemic drugs; Z79.899 Other long term (current) drug therapy; Z88.1 Allergy status to other antibiotic agents; Z88.8 Allergy status to other drugs, medicaments and biological substances; Z87.891 Personal history of nicotine dependence
CPT/HCPCS: 45385; 43239; 82947; 88305; 88313; 88342; J2704

== ENCOUNTER → 2023-10-24 09:28 | Outpatient (BNV) | payer OTHER, SELFPAY | PROVIDERS: PCP Physician Assistant; Visit Provider Internal Medicine Gastroenterology | DX: Z12.11 Encounter for screening for malignant neoplasm of colon (principal); D12.3 Benign neoplasm of transverse colon; D12.8 Benign neoplasm of rectum; K57.90 Diverticulosis of intestine, part unspecified, without perforation or abscess without bleeding; K21.9 Gastro-esophageal reflux disease without esophagitis; K29.70 Gastritis, unspecified, without bleeding | CPT/HCPCS: 43239; 45385 ==

== ENCOUNTER 2023-11-07 07:55 | Outpatient (AMB) | payer OTHER, SELFPAY ==
--- NOTE | 2023-11-07 07:57 | A.OFFVIS_ITS ---
Intake Vital Signs 11/07/23 07:58 Height 5 ft 3 in Weight 197 lb 8.547 oz BMI 35.0 BP 158/88 H Blood Pressure Location Lt brachial Position Sitting Pulse 78 Pulse Source Pulse Oximeter Pulse Oximetry (%) 100 Oxygen Delivery Method Room Air Intake Visit Reasons: S/P [place]; Dr. Mahan Intake Note: Pt here for follow up result colonoscopy. Information Interpreted: non-clinical & clinical Accompanied by: Self / Same As Patient Allergies ciprofloxacin [CIPROFLOXACIN] Allergy (Severe, Verified 11/07/23 08:03) Anaphylaxis naproxen Adverse Reaction (Mild, Verified 11/07/23 08:03) Abdominal Pain HPI S/P [place]; Dr. Mahan HPI Details LAST VISIT Colon cancer screening Patient denies any cardiac or respiratory symptoms.? Reports occasional acid reflux without dyspepsia, dysphagia or odynophagia. Denies any issues with anesthesia in the past.? History of sleep apnea, however not using CPAP for almost 6 years. Patient states that he no longer needs it.? No history infectious diseases in the past or present.? Not on any anticoagulation therapy.? No family or personal history of colon cancer or polyps.? Patient denies melena, hematochezia, unintentional weight loss or ribbon like stools.? Discussed at length the pre-procedure,? prep, diet & medications as well as what to expect prior, during and after the procedure.?? Stressed the importance of good bowel prep. ?Recommended the use of Vaseline or Calmoseptine OTC & baby wipes with bowel movements to promote comfort.? ?Patient verbalizes unders tanding and agrees to plan of care.? He was given the opportunity to ask questions and all questions answered.? We will see him after the procedure.? GERD (gastroesophageal reflux disease) Continue omeprazole. Discussed with patient avoiding dietary triggers and like I snacking. Staying upright for minimal 3 hours after meals discussed with him. I will send him for upper endoscopy to better evaluate. Patient is diabetic, reports occasional acid reflux. Plan Medications New bisacodyl (Dulcolax (bisacodyl)) take 2 tabs at noon the day before your colonoscopy 10 mg (2 x 5 mg) PO ONCE 1 day 2 tabs 0RF Z12.11 polyethylene glycol 3350 (Miralax) As directed by gastroenterology department at [facility] 238 grams PO ONCE 238 grams 0RF Z12.11 COLONOSCOPY AND UPPER ENDOSCOPY Findings: Larynx: Normal Esophagus: GE junction at 42 cms. A 1 cms tongue of possible Mccarty's - b iopsied. Stomach: Moderate diffuse gastric erythema with nodular appearing mucosa in the gastric body - biopsies were obtained from the body and antrum. Grade 2 flap valve on retroflexed examination of the cardia. Duodenum: Normal bulb and descending duodenum Biopsies were obtained from descending duodenum to check for celiac sprue Intervention: Biopsies as noted above Findings: Terminal Ileum: Not evaluated Cecum: Normal Ascending Colon: Normal Transverse Colon: A 10 - 12 mm sessile polyp in the distal transverse colon - removed with a cold snare Descending Colon: Moderate diverticulosis Sigmoid Colon: A 7-8 mm sessile polyp - removed with a cold snare. Moderate diverticulosis Rectum: 12-15 mm sessile polyp - removed with a hot snare Ano-rectum: Moderate internal hemorrhoids Colon preparation: Good after copious irrigation. There was scattered undigested vegetable matter which could not be suctioned. [place] Bowel Preparation Scale Right colon; 2 Transverse colon: 2 Left colon; 2 (0 = Unprepared colon segment with mucos a not seen due to solid stool that cannot be cleared. 1 = Portion of mucosa of the colon segme nt seen, but other areas of the colon segment not well seen due to staining, residual stool and/or opaque liquid. 2 = Minor amount of residual staining, s mall fragments of stool and/or opaque liquid, but mucosa of colon segment seen well. 3 = Entire mucosa of colon segment seen well with no residual staining, small fragments of stool or opaque liquid) Impression and Post Procedure Diagnosis: Endoscopy Findings: ESOPHAGUS: A 1 cms tongue of possible Mccarty's - biopsied. STOMACH: Moderate diffuse gastric erythema with nodular appearing mucosa in the gastric body - biopsies were obtained from the antrum. DUODENUM: Normal - biopsied to check for celiac sprue Colonoscopy Findings: One small and two medium sized polyps were removed Moderate diverticulosis seen in the left colon Plan: Pt has a FU appointment on 11/07/23 with Judit Romo. Repeat Colonoscopy in 3-5 years if polyps are adenomatous and 10 year if polyps are hyperplastic. Above findings were reviewed with the patient and relevant handouts were given and the discharge area. PATHOLOGY RESULTS Diagnosis A. Small bowel, biopsy: Small bowel mucosa with preserved villi and no specific change. B. Gastric antrum, biopsy: Gastric antral mucosa with minimal chronic inactive gastritis; negative for H pylori, intestinal metaplasia and dysplasia. C. Gastric body, biopsy: Gastric body mucosa with minimal chronic inactive gastritis and features suggesting proton pump inhibitor effect; negative for H pylori, intestinal metaplasia and dysplasia. D. Gastroesophageal junction, biopsy: Squamocolumnar mucosa with mild chronic inflammation; negative for intestinal metaplasia and dysplasia. E. Colon, transverse, polyp: Tubular adenoma; negative for high-grade dysplasia and carcinoma. F. Colon, sigmoid, polyp: No tissue present for evaluation; fecal material only. G. Colon, rectal polyp: Tubular adenoma; negative for high-grade dysplasia and carcinoma TODAY'S VISIT Patient is here today for follow-up and to discuss upper endoscopy and colonoscopy results. Patient denies any ill effects from the prep, anesthesia or procedure itself. Colonoscopy and biopsy results discussed with patient. Patient reports that he continues to have occasionally dyspepsia without dysphagia or odynophagia. Occasional acid reflux in the morning. Patient reports that he feels like he is moving his bowels well. Patient reports frequent belching specially in the morning. Denies any nausea or vomiting. Denies any diarrhea denies any abdominal discomfort ports that he moves his bowels every couple days. Patient denies melena, hematochezia, unintentional weight loss or ribbon like stools. Patient denies any other GI concerning symptoms. [facility] Medical History (Updated 11/07/23 @ 08:51 by ABDON Vinson) Tubular adenoma of colon Diverticulitis Obstructive sleep apnea (adult) (pediatric) Obesity Diabetes mellitus type II, controlled Inflammatory arthritis Osteoarthritis of hand Erectile dysfunction Decreased libido Elevated prostate specific antigen [PSA] Umbilical hernia Essential (primary) hypertension Gastro-esophageal reflux disease without esophagitis Type 2 diabetes mellitus with hyperglycemia Generalized anxiety disorder Basal cell carcinoma of skin Surgical History History of nasal surgery History of umbilical hernia repair Family History Sister Intestinal cancer Mother No problems noted. Father No problems noted. Paternal Grandfather No problems noted. 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 [employer] Current occupational exposures/hazards: No Cognitive needs: No Hearing needs: No Vision needs: Yes (Glasses) Review of Systems Const Denies weight gain and Denies weight loss ENT Reports no additional complaints, Denies dysphagia and Denies odynophagia Card Reports no additional complaints Resp Reports no additional complaints GI Denies abdominal pain, Reports belching, Denies melena, Reports bloating, Denies change in bowel habits, Denies dysphagia, Denies excessive flatus, Denies dyspepsia, Denies heartburn, Denies diarrhea, Denies loose stools, Denies nausea, Denies odynophagia and Denies vomiting Reports no additional complaints Musc Reports no additional complaints Neuro Reports no additional complaints Psych Reports no additional complaints Endo Reports no additional complaints Physical Exam Vital Signs: Last Vital Signs Pulse 78 11/07/23 07:58 BP 158/88 H 11/07/23 07:58 Pulse Ox 100 11/07/23 07:58 Oxygen Delivery Method Room Air 11/07/23 07:58 BMI result Body Mass Index 35.0 Const General: healthy appearing and no acute distress Nutritional Appearance: obese Orientation/consciousness: patient oriented x3 Resp Effort & Inspection: normal respiratory effort, able to speak in complete sentences, no tracheal deviation and symmetric chest movement Auscultation: clear to auscultation bilaterally Cardio Rate: regular rate GI Inspection: Yes normal to inspection, No distended and Yes obesity Palpation (GI): Soft to palpation, not firm, nontender and No hepatosplenomegaly present Auscultation: normal bowel sounds General: Yes no CVA tenderness Back/Spine/Pelvis Back: no CVA tenderness Skin General skin exam: elasticity normal, turgor normal and dry skin Neuro General: patient oriented x3 Psych Appearance: grossly normal Mental Status: mental status grossly normal Assessment & Plan Assessment & Plan (1) GERD (gastroesophageal reflux disease): Code(s): K21.9 - Gastro-esophageal reflux disease without esophagitis Qualifiers: Esophagitis presence: without esophagitis Qualified Code(s): K21.9 - Ga stro-esophageal reflux disease without esophagitis (2) Tubular adenoma of colon: Code(s): D12.6 - Benign neoplasm of colon, unspecified (3) Postprandial abdominal bloating: Code(s): R14.0 - Abdominal distension (gaseous) Plan Patient reports that he has increased in belching. We will change PPI to pantoprazole. Patient was encouraged to avoid dietary triggers. Patient will follow FODMAP diet. List of food recommended as well as list of food to avoid given to patient. Tubular adenoma without high-grade dysplasia or carcinoma found. Patient will need colonoscopy in 3 years, sooner if clinically necessary. Patient denies any melena, hematochezia, unintentional weight loss or ribbon like stools. Reports constipation, will start him on MiraLax. Patient was also encouraged to increase fiber intake. May take probiotics. Patient was encouraged to increase fluid intake and activity to promote better bowel motility. I will see him in 3 months, sooner on as needed basis. Patient is agreeable to this plan and verbalizes understanding of instructions. He was given the opportunity to ask questions and all questions answered. Thank you for allowing me to participate in his care Medications: New polyethylene glycol 3350 (Miralax) 17 grams PO DAILY 510 grams 2RF pantoprazole take one tablet half an hour before breakfast 40 mg PO DAILY 30 tabs 2RF K21.9 - Gastro-esophageal reflux disease without esophagitis Discontinued omeprazole Discontinued Reason: Doctor's Order 40 mg PO DAILY 90 days 90 caps 2RF K21.9 - Gastro-esophageal reflux disease without esophagitis Coding Level of Care Code Est Pt Level 3 (03653) Diagnoses Gastroesophageal reflux disease without esophagitis K21.9 Esophagitis presence: without esophagitis Tubular adenoma of colon D12.6 Postprandial abdominal bloating R14.0 Time Spent (min) 25 Comment 15 minutes spent with patient and additional 10 minutes spent reviewing his records
[2023-11-07 07:58] VITALS: BP 158/88; PULSE 78; O2SAT 100; BMI 35.0
== END 2023-11-07 08:20 | disposition home or self-care (01) ==
PROVIDERS: PCP Physician Assistant; Visit Provider Nurse Practitioner Family
DX: K21.9 Gastro-esophageal reflux disease without esophagitis (principal); D12.6 Benign neoplasm of colon, unspecified; R14.0 Abdominal distension (gaseous)
CPT/HCPCS: 99213

== ENCOUNTER → 2023-11-07 07:55 | Outpatient (BNVA) | payer OTHER, SELFPAY | PROVIDERS: PCP Physician Assistant; Visit Provider Nurse Practitioner Family ==

== ENCOUNTER 2023-12-07 08:17 | Outpatient (AMB) | payer OTHER, SELFPAY ==
--- NOTE | 2023-12-07 08:36 | A.OFFVIS_ITS ---
Intake VS Expanded 12/07/23 08:38 Height 5 ft 3 in Weight 197 lb 8.547 oz BMI 35.0 Intake Visit Reasons: T2DM\CONFIRMED Allergies ciprofloxacin [CIPROFLOXACIN] Allergy (Severe, Verified 11/07/23 08:03) Anaphylaxis naproxen Adverse Reaction (Mild, Verified 11/07/23 08:03) Abdominal Pain HPI Nutrition Presentation Details Pt presents for MNT f/u for T2DM. Pt reports fasting blood sugars are improving, mostly less than 120 mg Denies hypoglycemia symptoms Pt reports working on choosing low acidic, low fat foods. Physical activity: walking at work > 20 min/day food frequency Ve c/week fruits: 1/d fish: 0-1/wk starches >20/d dairy: 3-4 serving/d Most Recent Diabetes Results: Microalb/Creat Ratio 9.2 ug/mg cr (<30) 09/17/23 Cholesterol 162 mg/dL (<200) 09/17/23 HDL Cholesterol 40 mg/dL (>40) L 09/17/23 Triglycerides 154 mg/dL (<150) H 09/17/23 Creatinine 1.15 mg/dL (0.5-1.4) 09/17/23 Blood Urea Nitrogen 34 mg/dL (9-16) H 09/17/23 Sodium 139 mmol/L (135-145) 09/17/23 Potassium 4.7 mmol/L (3.3-5.1) 09/17/23 Chloride 104 mmol/L (96-108) 09/17/23 Carbon Dioxide 29 mmol/L (22-29) 09/17/23 Calcium 9.6 mg/dL (8.4-10.2) 09/17/23 AST 21 U/L (5-37) 09/17/23 ALT 19 U/L (0-40) 09/17/23 Total Protein 6.8 g/dL (6.5-8.0) 09/17/23 Albumin 4.1 g/dL (3.5-5.0) 09/17/23 [facility] Medical History (Updated 12/12/23 @ 11:34 by Judy Cornelius, RD, LDN) Tubular adenoma of colon Diverticulitis Obstructive sleep apnea (adult) (pediatric) Obesity Diabetes mellitus type II, controlled Inflammatory arthritis Osteoarthritis of hand Erectile dysfunction Decreased libido Elevated prostate specific antigen [PSA] Umbilical hernia Essential (primary) hypertension Gastro-esophageal reflux disease without esophagitis Type 2 diabetes mellitus with hyperglycemia Generalized anxiety disorder Basal cell carcinoma of skin Surgical History History of nasal surgery History of umbilical hernia repair Family History Sister Intestinal cancer Mother No problems noted. Father No problems noted. Paternal Grandfather No problems noted. 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 [employer] Current occupational exposures/hazards: No Cognitive needs: No Hearing needs: No Vision needs: Yes (Glasses) Assessment & Plan Assessment & Plan (1) DMII (diabetes mellitus, type 2): Comment: A1c 8.4 % ( 09/2023), A1c 7.3% (12/2022) 8.5% ( 07/2022) , BMI 35 (11/2023) 33.3 (08/2023), 35.5 (10/2022) 33.5 (07/2023) Code(s): E11.9 - Type 2 diabetes mellitus without complications Qualifiers: Diabetes mellitus terminal press operator insulin use: without custodial use Diabetes mellitus complication status: with hyperglycemia Qualified Code(s): E11.65 - Type 2 diabetes mellitus with hyperglycemia Plan: Reviewed 1999 brandee meal plan and lower carb/nutrient dense bedtime snack op tions ? Used wt : 94 kg (10/2022) (weight dec to 87 kg on 07/2023) Est kcal as per MSJ: 1928 (40% carb, 30% fat/prot) Est fluid needs: 2350 ml/d (25 ml/kg bw) Rec fiber: increase to 8-10 g per day and gradually increase to 35 g or as tolerated Rec Na: < 2000 mg /d Educate patient on: (R= Reviewed, V = verbalizes understanding N/R= Needs review N/A= not applicable) * Food sources of carbohydrates and serving adequate serving sizes : R * Difference between complex carbohydrates and simple carbohydrates, role of fiber: R * Differences between fats (MUFA/PUFA/saturated fats, trans fats) and food sources of various fats: R * Food sources of sodium and salt and healthy modifications for heart health and kidney health: R * Vitamins and minerals: R , V * How to interpret food labels: R V * Healthy Plate method concept: R V * Physical activity: benefits and precaution: R V * hypoglycemia prevention and treatment: R, V Patient Instructions: Resume reducing on pastries Have a glucerna shake as bedtime snack see list of low sugar options as snack with less than 20 g carb, less than 200 calories Coding Level of Care Code Nutr Indiv Subseq (22704) Diagnoses Type 2 diabetes mellitus with hyperglycemia, without long-term current use of insulin E11.65 Diabetes mellitus custodial insulin use: without terminal press operator use Diabetes mellitus complication status: with hyperglycemia Time Spent (min) 30
[2023-12-07 08:38] VITALS: BMI 35.0
== END 2023-12-07 09:03 | disposition home or self-care (01) ==
PROVIDERS: PCP Physician Assistant; Visit Provider Dietitian, Registered
DX: E11.65 Type 2 diabetes mellitus with hyperglycemia (principal)

== ENCOUNTER → 2023-12-07 08:17 | Outpatient (BNVA) | payer OTHER, SELFPAY | PROVIDERS: PCP Physician Assistant; Visit Provider Dietitian, Registered | DX: E11.65 Type 2 diabetes mellitus with hyperglycemia (principal); Z71.3 Dietary counseling and surveillance | CPT/HCPCS: 97803 ==

== ENCOUNTER 2024-01-25 08:50 | Outpatient (AMB) | payer OTHER, SELFPAY ==
--- NOTE | 2024-01-25 08:52 | A.OFFPC_ITS ---
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 Accompanied by: Self / Same As Patient Allergies ciprofloxacin [CIPROFLOXACIN] Allergy (Severe, Verified 01/25/24 09:18) Anaphylaxis naproxen Adverse Reaction (Mild, Verified 01/25/24 09:18) Abdominal Pain Medication List - Last Reconciled 01/25/24 by Trey Lin PA-C albuterol sulfate 90 mcg/actuation 2 puffs inhalation Q6H PRN 30 days atorvastatin 20 mg PO DAILY 90 days blood sugar diagnostic (FreeStyle Lite Strips) Testing once a day blood-glucose meter (FreeStyle [place]ia kit) Testing once a day fluticasone propionate 50 mcg/actuation (Allergy Relief (fluticasone)) 2 sprays intranasal DAILY glipizide ER 5 mg PO DAILY 90 days hydrochlorothiazide 25 mg PO DAILY 90 days metformin 1,000 mg PO BID 90 days multivitamin with iron 1 tab PO DAILY olmesartan 40 mg PO DAILY 90 days pantoprazole 40 mg PO DAILY pioglitazone (Actos) 15 mg PO DAILY 90 days polyethylene glycol 3350 (Miralax) 17 grams PO DAILY Tobacco use date assessed: 09/21/23 Fall risk assessment: No Falls in past year Last assessed Fall Risk: 01/25/24 Dental Screening Dental Screen Date: 09/21/23 HPI PE/DMII F/U HPI Details Patient is a 68-year-old male here today for routine annual physical. Patient has a past medical history significant for type 2 diabetes, hypertension, obesity, hyperlipidemia. 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 .. Type 2 diabetes:? Patient's blood sugars have been much better. Patient was placed back on glipizide 5 mg. Today's A1c is 6.8 from above 8. Continue current antihyperglycemic p.o. medications. .. Hypertension:? Blood pressure today in office slightly elevated.? He denies any headaches, chest discomforts are dizziness.? He does not monitor his blood pressure at home and will start doing so. .. Chronically elevated PSA: Followed by Urology, denies any urinary symptoms. Has chronically elevated PSA around 13. Reports he has had biopsies an evaluations though no cancer. .. Obesity: Has lost weight since last office visit? Patient does understand his BMI is over 30 will work on being more physically active and adapting to better eating habits to reduce weight .. GERD: Continues on PPI, has been avoiding? GI irritant foods Colonoscopy: Colonoscopy done in October of 2023, tubular adenoma polyps found, repeat 3 years . Vaccines: Up-to-date with COVID vaccine, tetanus, considering pneumonia and shingles vaccines Laboratory Tests 09/17/23 09/17/23 09/21/23 07:25 07:29 08:32 POC Glucose Fasting Glucose 190 H Hgb A1c (Clinic) 8.4 H Cholesterol 162 LDL Cholesterol, C alc 92 Urine Microalbumin 11.0 10/24/23 10:02 POC Glucose 137 H Fasting Glucose Hgb A1c (Clinic) Cholesterol LDL Cholesterol, C alc Urine Microalbumin Laboratory Tests 01/25/24 08:59 Hgb A1c (Clinic) 6.8 H PFSH Medical History Tubular adenoma of colon Diverticulitis Obstructive sleep apnea (adult) (pediatric) Obesity Diabetes mellitus type II, controlled Inflammatory arthritis Osteoarthritis of hand Erectile dysfunction Decreased libido Elevated prostate specific antigen [PSA] Umbilical hernia Essential (primary) hypertension Gastro-esophageal reflux disease without esophagitis Type 2 diabetes mellitus with hyperglycemia Generalized anxiety disorder Basal cell carcinoma of skin Surgical History History of nasal surgery History of umbilical hernia repair Family History Sister Intestinal cancer Mother No problems noted. Father No problems noted. Paternal Grandfather No problems noted. 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 Refugio Eduardo, Mya Salamanca, Reid Inman and colleagues, with an educational sahil from [employer]. Review of Systems Const Denies body aches, Denies chills, Denies excessive sweating, Denies fatigue, Denies fever(s) and Denies headache(s) Eyes Denies blurry vision ENT Denies dysphagia, Denies vertigo, Denies dizziness, Denies headache(s), Denies hearing loss and Denies tinnitus Card Denies chest pain, Denies chest pain with activity, Denies syncope, Denies irregular heart rhythm and Denies dyspnea Resp Denies chest congestion, Denies cough, Denies hemoptysis, Denies dyspnea and Denies wheezing GI Denies abdominal pain, Denies melena, Denies hematochezia, Denies coffee ground emesis, Denies dysphagia, Denies diarrhea, Denies nausea and Denies vomiting Denies difficulty urinating, Denies dysuria, Denies urinary frequency, Denies u rinary hesitancy and Denies urinary urgency Musc Denies arthralgias, Denies limited range of motion, Denies muscle cramps and Denies muscle weakness Skin/Breast Denies rash and Denies skin ulcer Neuro Denies Abnormal speech present, Denies confusion, Denies vertigo, Denies dizziness, Denies syncope, Denies headache(s), Denies memory loss and Denies seizure-like activity Psych Denies anxiety, Denies confusion, Denies depression, Denies memory loss, Denies panic attacks and Denies paranoia Endo Denies excessive sweating, Denies fatigue, Denies flushing, Denies polydipsia and Denies polyuria Aller/Immun Denies wheezing Physical exam (Primary Care) Vital Signs: Last Vital Signs Pulse 87 01/25/24 08:53 BP 142/82 H 01/25/24 08:53 Pulse Ox 97 01/25/24 08:53 Oxygen Delivery Method Room Air 01/25/24 08:53 BMI result Body Mass Index 34.5 Tobacco/Smoking Status: Tobacco use Status Tobacco use date assessed 09/21/23 01/25/24 08:54 Patient Tobacco Use Status Former Tobacco user 01/25/24 09:29 Tobacco use type Cigarette 01/25/24 09:29 e-Cigarette/Vaping Use Never Used 01/25/24 09:29 Thrive Assessment: Date of Thrive Assessment Date Thrive assessed 09/21/23 01/25/24 08:54 Const General: cooperative, comfortable, no acute distress, alert and awake; No confusion Orientation/consciousness: oriented to person, oriented to place, patient oriented x3 and No confusion HENMT Head: Yes normocephalic Ears: external ears normal and TM's normal bilaterally Face and sinus: No sinus tenderness Mouth: Normal oral and palatal mucosa present and tongue normal Teeth and gingiva: dentition normal and gingiva normal Throat: Yes posterior oropharynx normal, Yes tonsils normal and Yes uvula midline Eyes Conjunctivae: conjunctivae normal Sclerae: sclerae normal Pupils: Equal, round and reactive pupils present EOM: EOMs intact bilaterally Direct Ophthalmoscopy: No no photophobia Neck Neck: Yes no lymphadenopathy, No tender and Yes no JVD Thyroid: Thyroid normal Carotids: no bruits Chest Chest palpation & inspection: no tenderness Resp Effort & Inspection: normal respiratory effort, no audible wheezes, not labored and no stridor Auscultation: no crackles, no rales, no rhonchi and no wheezes Cardio Jugular venous distension: no JVD Rate: regular rate, not bradycardic and not tachycardic Rhythm: regular rhythm Bruits: no carotid bruits Peripheral pulses: Peripheral pulses 2+ throughout GI Inspection: Yes normal to inspection, No abdominal wall ecchymosis and No visible herniation Palpation (GI): Soft to palpation, nontender, no guarding, not rigid and No hepatosplenomegaly present Auscultation: normoactive bowel sounds General: Yes no CVA tenderness Back/Spine/Pelvis Back: no CVA tenderness and No back tenderness Cervical Spine: cervical ROM normal Thoracic/Lumbar Spine: thoracic and lumbar spine normal to inspection, straight leg raise negative bilaterally, No thoraco-lumbar ROM limited and No lumbar spinal tenderness Skin Lesions: no lesions Rashes: no rashes Wounds: no wounds Neuro General: oriented to person, oriented to place, patient oriented x3, CN's II-XI intact bilaterally and No confusion Cranial nerves: Yes Equal, round and reactive pupils present and Yes Normal accommodation reflex present Cognition (Neuro): normal cognition Speech: No Abnormal speech present Gait exam (Neuro): Normal gait present Motor exam (neuro): 5/5 motor strength present throughout Extrem Right upper extremity: full ROM; no cyanosis Left upper extremity: full ROM; no cyanosis Right lower extremity: no edema Left lower extremity: no edema Psych Appearance: grossly normal Mental Status: mental status grossly normal Affect: normal affect Attitude: cooperative Thought process: Normal thought process present Results AMB Hemoglobin A1c AMB Hemoglobin A1c 6.8 % Last Edit by Chana Pantoja CMA on 01/25/24 09 :19 Results Reviewed Results Reviewed: Laboratory Last Values Hgb A1c (Clinic) 6.8 % (4.0-6.0) H 01/25/24 08:59 Assessment and Plan Assessment & Plan (1) Annual physical exam: Code(s): Z00.00 - Encounter for general adult medical examination without abnormal findings (2) DMII (diabetes mellitus, type 2): Comment: A1c 8.4 % ( 09/2023), A1c 7.3% (12/2022) 8.5% ( 07/2022) , BMI 35 (11/2023) 33.3 (08/2023), 35.5 (10/2022) 33.5 (07/2023) Code(s): E11.9 - Type 2 diabetes mellitus without complications Qualifiers: Diabetes mellitus complication status: with hyperglycemia Diabetes mellitus fci insulin use: without fci use Qualified Code(s): E11.65 - Type 2 diabetes mellitus with hyperglycemia Plan: Patient's type 2 diabetes suboptimally controlled , todays A1c -6.8. Will continue metformin and glipizide combo which has been effective him controlling his blood sugars. He plans on going to the gym more often and implementing a stricter diabetic diet Goal A1c is to be below 7.0 (3) HTN (hypertension): Code(s): I10 - Essential (primary) hypertension Qualifiers: Hypertension type: primary hypertension Qualified Code(s): I10 - Essential (primary) hypertension Plan: Patient's blood pressure slightly elevated today office will continue current dose of antihypertensive medication with goal blood pressure to be below 140/90. Advised to monitor blood pressure at home and if consistently above 140/90 will consider adding low-dose calcium channel jennifer. (4) HLD (hyperlipidemia): Code(s): E78.5 - Hyperlipidemia, unspecified Qualifiers: Hyperlipidemia type: mixed hyperlipidemia Qualified Code(s): E78.2 - Mixed hyperlipidemia Plan: Patient's lipid panel showing acceptable LDL and total cholesterol. Will reduce his atorvastatin to 20 mg [id number]. Goal LDL to remain below 100 (5) Asthma: Code(s): J45.909 - Unspecified asthma, uncomplicated Qualifiers: Asthma complication type: uncomplicated Asthma persistence: intermittent Asthma severity: mild Qualified Code(s): J45.20 - Mild intermittent asthma, uncomplicated Plan: Has been well controlled lately. Does have asthma exacerbations during springtime. He does have an albuterol inhaler available to him. Continues with allergy medication. Orders: Orders AMB Hemoglobin A1c Today Z13.9 - Encounter for screening, unspecified Varicella IgG Antibody Today Z78.9 - Other specified health status Medications: Refilled albuterol sulfate 90 mcg/actuation 2 puffs inhalation Q6H PRN 8.5 grams 1RF shortness of breath or wheezing 30 days J45.909 - Unspecified asthma, uncomplicated Patient Instructions: Goal: A1c to remain below 7, LDL to remain below 100 Barriers: Adherence to physical activity and healthy eating habits Coding Level of Care Code Est Pt Prev Care >65y(11446) Diagnoses Annual physical exam Z00.00 Type 2 diabetes mellitus with hyperglycemia, without long-term current use of insulin E11.65 Diabetes mellitus complication status: with hyperglycemia 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
[2024-01-25 08:53] VITALS: BP 142/82; PULSE 87; O2SAT 97; BMI 34.5
== END 2024-01-25 09:42 | disposition home or self-care (01) ==
PROVIDERS: PCP Physician Assistant; Visit Provider Physician Assistant
DX: Z00.00 Encounter for general adult medical examination without abnormal findings (principal); E11.65 Type 2 diabetes mellitus with hyperglycemia; I10 Essential (primary) hypertension; E78.2 Mixed hyperlipidemia; J45.20 Mild intermittent asthma, uncomplicated
CPT/HCPCS: 83036; 99397

== ENCOUNTER 2024-01-26 06:05 | Outpatient (REF) | payer OTHER, SELFPAY ==
[2024-01-26 08:02] LABS: Alanine Aminotransferase 20 U/L (0-40); Albumin Level 4.1 g/dL (3.5-5.0); Alkaline Phosphatase 68 U/L (39-117); Anion Gap 14 (12-20); Aspartate Amino Transferase 23 U/L (5-37); Bilirubin Total 0.4 mg/dL (0.0-1.0); Blood Urea Nitrogen 26 mg/dL (9-16); Calcium 9.5 mg/dL (8.4-10.2); Carbon Dioxide 29 mmol/L (22-29); Chloride 103 mmol/L (96-108); Cholesterol 172 mg/dL (<200); Estimated Glomerular Filt Rate 56; Glucose Fasting 125 mg/dL (60-99); HDL Cholesterol 48 mg/dL (>40); LDL Cholesterol Calculated 98 mg/dL (<100); Potassium 4.6 mmol/L (3.3-5.1); Sodium 141 mmol/L (135-145); Total Protein 6.7 g/dL (6.5-8.0); Triglycerides 132 mg/dL (<150)
[2024-01-26 08:22] LABS: Prostate Specific Antigen Scr 10.56 ng/mL (<0.05-4.0)
== END 2024-01-26 06:06 | disposition home or self-care (01) ==
LOC: HO.LAB 06:05
PROVIDERS: PCP Physician Assistant; Visit Provider Physician Assistant
DX: Z78.9 Other specified health status (principal); E78.2 Mixed hyperlipidemia; Z12.5 Encounter for screening for malignant neoplasm of prostate; R97.20 Elevated prostate specific antigen [PSA]; E11.65 Type 2 diabetes mellitus with hyperglycemia
CPT/HCPCS: 36415; 80053; 80061; 84153; 86787

== ENCOUNTER 2024-02-07 08:00 | Outpatient (AMB) | payer OTHER, SELFPAY ==
--- NOTE | 2024-02-07 08:03 | A.OFFVIS_ITS ---
Vital Signs 02/07/24 08:11 Height 5 ft 3 in Weight 194 lb 14.218 oz BMI 34.5 BP 146/86 H Blood Pressure Location Lt brachial Position Sitting Pulse 76 Pulse Source Pulse Oximeter Pulse Oximetry (%) 96 Oxygen Delivery Method Room Air Intake Visit Reasons: 3 months gerd Intake Note: Pascual presents in office today for a scheduled 3 mos FUV. CC; Pt was rx'd pantoprazole and miralax at the last office visit. Pt reports that their condition has remained stable if not improved slightly. Pt has been noticing certain foods which trigger his reflux and gas/bloating. Pt has been making minor diet adjustments which seem to be helping. BMs seem to be more regular and he has not had to rely as much on the miralax as he was expecting. 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 We will change PPI to pantoprazole. Patient was encouraged to avoid dietary triggers. Patient will follow FODMAP diet. List of food recommended as well as list of food to avoid given to patient. Tubular adenoma without high-grade dysplasia or carcinoma found. Patient will need colonoscopy in 3 years, sooner if clinically necessary. Patient denies any melena, hematochezia, unintentional weight loss or ribbon like stools. Reports constipation, will start him on MiraLax. Patient was also encouraged to increase fiber intake. May take probiotics. Patient was encouraged to increase fluid intake and activity to promote better bowel motility. I will see him in 3 months, sooner on as needed basis. Patient is agreeable to this plan and verbalizes understanding of instructions. He was given the opportunity to ask questions and all questions answered. ? Thank you for allowing me to participate in his care Medications New polyethylene glycol 3350 (Miralax) 17 grams PO DAILY 510 grams 2RF pantoprazole take one tablet half an hour before breakfast 40 mg PO DAILY 30 tabs 2RF K21.9 Discontinued omeprazole Discontinued Reason: Doctor's Order 40 mg PO DAILY 90 days 90 caps 2RF K21.9 TODAY'S VISIT: Patient is here today for follow-up. Patient reports that he has been feeling better after starting the pantoprazole. Patient reports that he changed his diet and his symptoms of acid reflux as well as epigastric pain and bloating postprandially have gotten much better. Patient is able to see which food would cause him feel bloated or have discomfort and cramping. Patient denies dyspepsia, dysphagia or odynophagia. Denies any melena, hematochezia, unintentional weight loss or ribbon like stools. Patient reports that he is moving his bowels better now. Patient is not taking MiraLax at this time. Patient denies any other GI concerning symptoms [facility] Medical History Tubular adenoma of colon Diverticulitis Obstructive sleep apnea (adult) (pediatric) Obesity Diabetes mellitus type II, controlled Inflammatory arthritis Osteoarthritis of hand Erectile dysfunction Decreased libido Elevated prostate specific antigen [PSA] Umbilical hernia Essential (primary) hypertension Gastro-esophageal reflux disease without esophagitis Type 2 diabetes mellitus with hyperglycemia Generalized anxiety disorder Basal cell carcinoma of skin Surgical History History of nasal surgery History of umbilical hernia repair Family History Sister Intestinal cancer Mother No problems noted. Father No problems noted. Paternal Grandfather No problems noted. 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 [employer] Current occupational exposures/hazards: No Cognitive needs: No Hearing needs: No Vision needs: Yes (Glasses) Review of Systems Const Denies weight gain and Denies weight loss ENT Reports no additional complaints, Denies dysphagia and Denies odynophagia Card Reports no additional complaints Resp Reports no additional complaints GI Denies abdominal pain, Denies belching, Denies melena, Denies bloating, Denies change in bowel habits, Denies dysphagia, Denies excessive flatus, Denies dyspepsia, Denies heartburn, Denies diarrhea, Denies loose stools, Denies nausea, Denies odynophagia and Denies vomiting Reports no additional complaints Musc Reports no additional complaints Neuro Reports no additional complaints Psych Reports no additional complaints Endo Reports no additional complaints Physical Exam Vital Signs: Last Vital Signs Pulse 76 02/07/24 08:11 BP 146/86 H 02/07/24 08:11 Pulse Ox 96 02/07/24 08:11 Oxygen Delivery Method Room Air 02/07/24 08:11 BMI result Body Mass Index 34.5 Const General: healthy appearing and no acute distress Nutritional Appearance: obese Orientation/consciousness: patient oriented x3 Resp Effort & Inspection: normal respiratory effort, able to speak in complete sentences, no tracheal deviation and symmetric chest movement Auscultation: clear to auscultation bilaterally Cardio Rate: regular rate GI Inspection: Yes normal to inspection, No distended and Yes obesity Palpation (GI): Soft to palpation, not firm, nontender and No hepatosplenomegaly present Auscultation: normal bowel sounds General: Yes no CVA tenderness Back/Spine/Pelvis Back: no CVA tenderness Skin General skin exam: elasticity normal, turgor normal and dry skin Neuro General: patient oriented x3 Psych Appearance: grossly normal Mental Status: mental status grossly normal Assessment & Plan Assessment & Plan (1) GERD (gastroesophageal reflux disease): Code(s): K21.9 - Gastro-esophageal reflux disease without esophagitis Category: Medical Qualifiers: Esophagitis presence: without esophagitis Qualified Code(s): K21.9 - Gastro-esophageal reflux disease without esophagitis (2) Tubular adenoma of colon: Code(s): D12.6 - Benign neoplasm of colon, unspecified Category: Medical (3) Postprandial abdominal bloating: Code(s): R14.0 - Abdominal distension (gaseous) Plan Continue avoiding dietary triggers and late night snacking. Staying upright for minimum 3 hours after meals discussed with patient. Continue low FODMAP diet. Follow recommendation made last visit. Continue pantoprazole daily. May use MiraLax on as needed basis. Increase fluid intake and activity to promote better bowel motility. Patient will return in 6 months, sooner on as needed basis. He is agreeable to this plan and verbalizes understanding of instructions. He was given the opportunity to ask questions and all questions answered. Thank you for allowing me to participate in his care Medications: Refilled pantoprazole take one tablet half an hour before breakfast 40 mg PO DAILY 90 tabs 2RF K21.9 - Gastro-esophageal reflux disease without esophagitis Coding Level of Care Code Est Pt Level 3 (71150) Diagnoses Gastroesophageal reflux disease without esophagitis K21.9 Esophagitis presence: without esophagitis Tubular adenoma of colon D12.6 Postprandial abdominal bloating R14.0 Time Spent (min) 25 Comment 15 minutes spent with patient and additional 10 minutes spent reviewing his records
[2024-02-07 08:11] VITALS: BP 146/86; PULSE 76; O2SAT 96; BMI 34.5
== END 2024-02-07 08:30 | disposition home or self-care (01) ==
PROVIDERS: PCP Physician Assistant; Visit Provider Nurse Practitioner Family
DX: K21.9 Gastro-esophageal reflux disease without esophagitis (principal); D12.6 Benign neoplasm of colon, unspecified; R14.0 Abdominal distension (gaseous)
CPT/HCPCS: 99213

== ENCOUNTER → 2024-02-07 08:00 | Outpatient (BNVA) | payer OTHER, SELFPAY | PROVIDERS: PCP Physician Assistant; Visit Provider Nurse Practitioner Family ==

== ENCOUNTER 2024-05-01 08:23 | Outpatient (AMB) | payer OTHER, SELFPAY ==
[2024-05-01 08:30] VITALS: BMI 35.3
--- NOTE | 2024-05-01 08:30 | A.OFFVIS_ITS ---
VS Expanded 05/01/24 08:30 Height 5 ft 3 in Weight 199 lb 8.293 oz BMI 35.3 Intake Visit Reasons: T2DM/CONFIRMED Allergies ciprofloxacin [CIPROFLOXACIN] Allergy (Severe, Verified 02/07/24 08:04) Anaphylaxis naproxen Adverse Reaction (Mild, Verified 02/07/24 08:04) Abdominal Pain Nutrition Presentation Details: Pt presents for MNT f/u for T2DM Pt reports doing well, bg reading range from 120-130s, on occ over 200s Pt reports overall having good appetite, no concerns expressed during this appt BS Monitoring Most Recent Diabetes Results: Cholesterol 172 mg/dL (<200) 01/26/24 HDL Cholesterol 48 mg/dL (>40) 01/26/24 Triglycerides 132 mg/dL (<150) 01/26/24 Creatinine 1.28 mg/dL (0.5-1.4) 01/26/24 Blood Urea Nitrogen 26 mg/dL (9-16) H 01/26/24 Sodium 141 mmol/L (135-145) 01/26/24 Potassium 4.6 mmol/L (3.3-5.1) 01/26/24 Chloride 103 mmol/L (96-108) 01/26/24 Carbon Dioxide 29 mmol/L (22-29) 01/26/24 Calcium 9.5 mg/dL (8.4-10.2) 01/26/24 AST 23 U/L (5-37) 01/26/24 ALT 20 U/L (0-40) 01/26/24 Total Protein 6.7 g/dL (6.5-8.0) 01/26/24 Albumin 4.1 g/dL (3.5-5.0) 01/26/24 PENDING SALE TO [facility] Medical History Tubular adenoma of colon Diverticulitis Obstructive sleep apnea (adult) (pediatric) Obesity Diabetes mellitus type II, controlled Inflammatory arthritis Osteoarthritis of hand Erectile dysfunction Decreased libido Elevated prostate specific antigen [PSA] Umbilical hernia Essential (primary) hypertension Gastro-esophageal reflux disease without esophagitis Type 2 diabetes mellitus with hyperglycemia Generalized anxiety disorder Basal cell carcinoma of skin Surgical History History of nasal surgery History of umbilical hernia repair Family History Sister Intestinal cancer Mother No problems noted. Father No problems noted. Paternal Grandfather No problems noted. 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 Used wt : 94 kg (10/2022) (weight dec to 87 kg on 07/2023) Est kcal as per MSJ: 1928 (40% carb, 30% fat/prot) Est fluid needs: 2350 ml/d (25 ml/kg bw) Rec fiber: increase to 8-10 g per day and gradually increase to 35 g or as tolerated Rec Na: < 2000 mg /d Educate patient on: (R= Reviewed, V = verbalizes understanding N/R= Needs review N/A= not applicable) * Food sources of carbohydrates and serving adequate serving sizes : R,V * Difference between complex carbohydrates and simple carbohydrates, role of fiber: R,V * Differences between fats (MUFA/PUFA/saturated fats, trans fats) and food sources of various fats: R,V * Food sources of sodium and salt and healthy modifications for heart health and kidney health: R ,V * Vitamins and minerals: R , V * How to interpret food labels: R V * Healthy Plate method concept: R V * Physical activity: benefits and precaution: R V * hypoglycemia prevention and treatment: R, V Patient Instructions: Continue working on choosing low fat food options (reducing fried foods, pastries and similar foods0 Choose fruit if developing low blood sugar instead of pastries Keep walking as able and keeping hydrated Coding Level of Care Code Nutr Indiv Subseq ([id number]) Diagnoses Type 2 diabetes mellitus with hyperglycemia, without long-term current use of insulin E11.65 Diabetes mellitus complication status: with hyperglycemia Diabetes mellitus long line teamster insulin use: without mcfp use Time Spent (min) 30
== END 2024-05-01 08:56 | disposition home or self-care (01) ==
PROVIDERS: PCP Physician Assistant; Visit Provider Dietitian, Registered
DX: E11.65 Type 2 diabetes mellitus with hyperglycemia (principal)

== ENCOUNTER → 2024-05-01 08:23 | Outpatient (BNVA) | payer OTHER, SELFPAY | PROVIDERS: PCP Physician Assistant; Visit Provider Dietitian, Registered | DX: E11.65 Type 2 diabetes mellitus with hyperglycemia (principal); Z71.3 Dietary counseling and surveillance | CPT/HCPCS: 97803 ==

== ENCOUNTER 2024-05-22 15:02 | Outpatient (REF) | payer OTHER, SELFPAY ==
--- NOTE | ~2024-05-22 | XR_ITS ---
EXAMINATION: XR CHEST CLINICAL INFORMATION: Bronchitis, cough, phlegm COMPARISON: October 22, 2018 TECHNIQUE: 2 views of the chest were obtained. FINDINGS: There is no gross pneumothorax. Stable cardiomediastinal silhouette. Heart size upper limits of normal. S-shaped thoracolumbar scoliosis with multilevel degenerative changes. Bilateral patchy bibasilar opacities with extensive left mid to lower lung component and more moderate right lower lung component. No gross pleural effusion. XR/XR chest 2V IMPRESSION: Bilateral patchy bibasilar opacities with extensive left mid to lower lung component and more moderate right lower lung component. Findings are concerning for pneumonia versus other etiology. Recommend follow-up imaging in 4-6 weeks to confirm resolution and exclude underlying pathology. This study was presented to me on May 23, 2024 for interpretation. PSA staff will provide results to referring provider at this time. Electronically signed by: Dariana Daniels MD 05/23/2024 12:12 PM EDT
== END 2024-05-22 15:03 | disposition home or self-care (01) ==
LOC: HO.XRAY 15:02
PROVIDERS: PCP Physician Assistant; Visit Provider Physician Assistant
DX: J40 Bronchitis, not specified as acute or chronic (principal)
CPT/HCPCS: 71046

== ENCOUNTER 2024-07-16 08:37 | Outpatient (AMB) | payer OTHER, SELFPAY ==
--- NOTE | 2024-07-16 08:46 | MHC.PC.OV ---
Vital Signs 07/16/24 08:48 Height 5 ft 3 in Weight 200 lb 8 oz BMI 35.5 BP 126/60 Blood Pressure Location Lt brachial Position Sitting Pulse 106 H Pulse Source Pulse Oximeter Pulse Oximetry (%) 99 Oxygen Delivery Method Room Air Intake Visit Reasons: f/u DMII Intake Note: Patient is here to follow up on DM. Pt decline flu shot today. Patients Transporter Required: No Flour Blender: Not Required per policy Accompanied by: Self / Same As Patient Allergies ciprofloxacin [CIPROFLOXACIN] Allergy (Severe, Verified 07/16/24 09:02) Anaphylaxis naproxen Adverse Reaction (Mild, Verified 07/16/24 09:02) Abdominal Pain Medication List - Last Reconciled 07/16/24 by Trey Lin PA-C albuterol sulfate 90 mcg/actuation 2 puffs inhalation Q6H PRN 30 days atorvastatin 20 mg PO DAILY 90 days blood sugar diagnostic (FreeStyle Lite Strips) Testing once a day blood-glucose meter (FreeStyle [place] kit) Testing once a day codeine-guaifenesin 10-100 mg/5 mL 5 mL PO Q6H PRN 5 days doxycycline monohydrate 100 mg PO BID 5 days fluticasone propionate 50 mcg/actuation (Allergy Relief (fluticasone)) 2 sprays intranasal DAILY glipizide ER 5 mg PO DAILY 90 days hydrochlorothiazide 25 mg PO DAILY 90 days metformin 1,000 mg PO BID 90 days multivitamin with iron 1 tab PO DAILY olmesartan 40 mg PO DAILY 90 days pantoprazole 40 mg PO DAILY pioglitazone (Actos) 15 mg PO DAILY 90 days polyethylene glycol 3350 (Miralax) 17 grams PO DAILY Tobacco use date assessed: 07/16/24 Fall risk assessment: No Falls in past year Last assessed Fall Risk: 07/16/24 Dental Screening Dental Screen Date: 09/21/23 HPI f/u DMII HPI Details Patient is a 69-year-old male here today for a follow-up visit Patient has a past medical history significant for type 2 diabetes, hypertension, obesity, hyperlipidemia. 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 Concern-> patient recently had pneumonia was treated with cough syrup and antibiotic and feeling much better. .. Type 2 diabetes:? Patient's blood sugars have been much better. Patient was placed back on glipizide 5 mg. Today's A1c is 6.8. He reports his glucometer has stopped working and needs a new script for a new glucometer. Has not been checking his blood sugars for a few weeks now. .. Hypertension:? Blood pressure today in office acceptable.? He denies any headaches, chest discomforts are dizziness.? He does not monitor his blood pressure at home and will start doing so. .. Chronically elevated PSA: Followed by Urology, denies any urinary symptoms. Has chronically elevated PSA around 13. Reports he has had biopsies an evaluations though no cancer. .. Obesity: Unfortunately has gained weight since last office visit.? Patient does understand his BMI is over 30 will work on being more physically active and adapting to better eating habits to reduce weight .. GERD: Continues on PPI, has been avoiding? GI irritant foods FOR[facility]LY [facility], [facility] Medical History Tubular adenoma of colon Diverticulitis Obstructive sleep apnea (adult) (pediatric) Obesity Diabetes mellitus type II, controlled Inflammatory arthritis Osteoarthritis of hand Erectile dysfunction Decreased libido Elevated prostate specific antigen [PSA] Umbilical hernia Essential (primary) hypertension Gastro-esophageal reflux disease without esophagitis Type 2 diabetes mellitus with hyperglycemia Generalized anxiety disorder Basal cell carcinoma of skin Surgical History History of nasal surgery History of umbilical hernia repair Family History Sister Intestinal cancer Mother No problems noted. Father No problems noted. Paternal Grandfather No problems noted. 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 Refugio L. AleshaMay mcneal, Reid Inman and colleagues, with an educational sahil from [employer]. Review of Systems Const Denies headache(s) Eyes Denies loss of vision ENT Denies vertigo, Denies dizziness, Denies headache(s) and Denies sore throat Card Denies chest pain, Denies leg edema and Denies lightheadedness Resp Denies cough, Denies hemoptysis and Denies wheezing GI Denies abdominal pain, Denies melena, Denies constipation, Denies diarrhea and Denies vomiting Denies dysuria, Denies urinary frequency and Denies urinary urgency Musc Denies arthralgias, Denies joint swelling, Denies numbness and Denies tingling Neuro Denies Abnormal speech present, Denies behavioral changes, Denies vertigo, Denies dizziness, Denies headache(s), Denies loss of vision, Denies memory loss, Denies numbness and Denies tingling Psych Denies anxiety, Denies behavioral changes, Denies depression, Denies memory loss and Denies panic attacks Aly/Lymph Denies easy bleeding and Denies easy bruising Aller/Immun Denies wheezing Physical exam (Primary Care) Vital Signs: Last Vital Signs Pulse 106 H 07/16/24 08:48 BP 126/60 07/16/24 08:48 Pulse Ox 99 07/16/24 08:48 Oxygen Delivery Method Room Air 07/16/24 08:48 BMI result Body Mass Index 35.5 Tobacco/Smoking Status: Tobacco use Status Tobacco use date assessed 07/16/24 07/16/24 08:56 Patient Tobacco Use Status Former Tobacco user 07/16/24 08:56 Tobacco use type Cigarette 07/16/24 08:56 e-Cigarette/Vaping Use Never Used 07/16/24 08:56 Thrive Assessment: Date of Thrive Assessment Date Thrive assessed 09/21/23 07/16/24 08:56 Const General: healthy appearing, no acute distress, alert and awake Nutritional Appearance: well nourished Orientation/consciousness: oriented to person, oriented to place and oriented to time HENMT Ears: TM's normal bilaterally General nose exam: Normal nasal mucous membranes and turbinates present Eyes Conjunctivae: conjunctivae normal Sclerae: sclerae normal Pupils: Equal, round and reactive pupils present Neck Neck: Yes no lymphadenopathy and Yes no JVD Thyroid: Thyroid normal Carotids: no bruits Resp Effort & Inspection: normal respiratory effort and not tachypneic Auscultation: no crackles, no rales, no rhonchi and no wheezes Cardio Rate: regular rate Rhythm: regular rhythm Heart sounds: no murmurs and normal S1 and S2 GI Palpation (GI): Soft to palpation, nontender, no hepatomegaly and no splenomegaly Auscultation: normal bowel sounds Skin General skin exam: no rashes or lesions noted and dry skin Neuro General: oriented to person, oriented to place and oriented to time Cranial nerves: Yes Equal, round and reactive pupils present Speech: No Abnormal speech present Gait exam (Neuro): Normal gait present Motor exam (neuro): no tremor noted Extrem Right upper extremity: full ROM Left upper extremity: full ROM Right lower extremity: full ROM; no edema Left lower extremity: full ROM; no edema Psych Mental Status: mental status grossly normal Speech and movement: Normal speech and movement present Affect: normal affect Attitude: cooperative Thought process: Normal thought process present Results AMB Hemoglobin A1c AMB Hemoglobin A1c 6.8 % Last Edit by PATSY Oliva on 07/16/24 09:14 Results Reviewed Results Reviewed: Laboratory Last Values Hgb A1c (Clinic) 6.8 % (4.0-6.0) H 07/16/24 08:46 Coding Level of Care Code Est Pt Level 4 (02398) Diagnoses Type 2 diabetes mellitus with hyperglycemia, without long-term current use of insulin E11.65 Diabetes mellitus complication status: with hyperglycemia Diabetes mellitus interlibrary loan specialist insulin use: without interlibrary loan specialist use Primary hypertension I10 Hypertension type: primary hypertension Elevated PSA R97.20 Mixed hyperlipidemia E78.2 Hyperlipidemia type: mixed hyperlipidemia Assessment & Plan Assessment & Plan (1) DMII (diabetes mellitus, type 2): Comment: Code(s): E11.9 - Type 2 diabetes mellitus without complications Category: Medical Qualifiers: Diabetes mellitus complication status: with hyperglycemia Diabetes mellitus halfway insulin use: without halfway use Qualified Code(s): E11.65 - Type 2 diabetes mellitus with hyperglycemia Plan: Patient's type 2 diabetes well controlled with A1c at 6.8. Will continue his current antihyperglycemic medication with goal A1c to remain below 7.0 (2) HTN (hypertension): Code(s): I10 - Essential (primary) hypertension Category: Medical Qualifiers: Hypertension type: primary hypertension Qualified Code(s): I10 - Essential (primary) hypertension Plan: Patient's blood pressure acceptable today in office. Will continue his current dose of anti hypertensive medication with goal blood pressure to be below 140/90 (3) Elevated PSA: Code(s): R97.20 - Elevated prostate specific antigen [PSA] Category: Medical Plan: As per HPI patient has a chronically elevated PSA in his followed by Urology. Has had extensive workup though no prostate malignancy found. He denies any urinary symptoms. (4) HLD (hyperlipidemia): Code(s): E78.5 - Hyperlipidemia, unspecified Category: Medical Qualifiers: Hyperlipidemia type: mixed hyperlipidemia Qualified Code(s): E78.2 - Mixed hyperlipidemia Plan: Patient's most recent lipid panel showing excellent control of his total cholesterol and LDL. He will continue his current dose of statin therapy with goal LDL to remain below 100 Orders: Orders AMB Hemoglobin A1c Today E11.65 - Type 2 diabetes mellitus with hyperglycemia Complete Blood Count no Diff Today E11.65 - Type 2 diabetes mellitus with hyperglycemia Lipid Panel Today E78.2 - Mixed hyperlipidemia Comprehensive [place]. Panel Fast Today E11.65 - Type 2 diabetes mellitus with hyperglycemia Medications: New blood-glucose meter (FreeStyle Lite Meter kit) As directed 1 ea 0RF E11.65 - Type 2 diabetes mellitus with hyperglycemia Discontinued codeine-guaifenesin 10-100 mg/5 mL Discontinued Reason: Doctor's Order 5 mL PO Q6H 5 days PRN 120 mL 0RF cough J40 - Bronchitis, not specified as acute or chronic doxycycline monohydrate Discontinued Reason: Doctor's Order 100 mg PO BID 5 days 10 caps 0RF J40 - Bronchitis, not specified as acute or chronic
[2024-07-16 08:48] VITALS: BP 126/60; PULSE 106; O2SAT 99; BMI 35.5
== END 2024-07-16 09:13 | disposition home or self-care (01) ==
PROVIDERS: PCP Physician Assistant; Visit Provider Physician Assistant
DX: E11.65 Type 2 diabetes mellitus with hyperglycemia (principal); I10 Essential (primary) hypertension; R97.20 Elevated prostate specific antigen [PSA]; E78.2 Mixed hyperlipidemia

== ENCOUNTER → 2024-07-16 08:37 | Outpatient (BNVA) | payer OTHER, SELFPAY | PROVIDERS: PCP Physician Assistant; Visit Provider Physician Assistant | DX: E11.65 Type 2 diabetes mellitus with hyperglycemia (principal); I10 Essential (primary) hypertension; R97.20 Elevated prostate specific antigen [PSA]; E78.2 Mixed hyperlipidemia; Z79.899 Other long term (current) drug therapy | CPT/HCPCS: 83036 ==

== ENCOUNTER 2024-08-06 08:21 | Outpatient (AMB) | payer OTHER, SELFPAY ==
--- NOTE | 2024-08-06 08:28 | MHC.OFFVIS ---
Vital Signs 08/06/24 08:34 Height 5 ft 3 in Weight 206 lb 5.643 oz BMI 36.5 BP 136/82 Blood Pressure Location Lt brachial Position Sitting Pulse 98 Pulse Source Pulse Oximeter Pulse Oximetry (%) 98 Oxygen Delivery Method Room Air Intake Visit Reasons: 6 month follow up GERD Intake Note: ESTABLISHED PATIENT Pascual presents in office today for a scheduled 6 mos FUV. Meds and Allergies reviewed? Y No recent or relevant surgeries? N Any significant concerns or new changes? No significant concerns per pt. Pharmacy verified? [facility] Required: No Allergies ciprofloxacin [CIPROFLOXACIN] Allergy (Severe, Verified 08/06/24 08:29) Anaphylaxis naproxen Adverse Reaction (Mild, Verified 08/06/24 08:29) Abdominal Pain HPI HPI 6 month follow up GERD: Details: LAST VISIT: GERD (gastroesophageal reflux disease) Tubular adenoma of colon Postprandial abdominal bloating Plan Continue avoiding dietary triggers and late night snacking. Staying upright for minimum 3 hours after meals discussed with patient. Continue low FODMAP diet. Follow recommendation made last visit. Continue pantoprazole daily. May use MiraLax on as needed basis. Increase fluid intake and activity to promote better bowel motility. Patient will return in 6 months, sooner on as needed basis. He is agreeable to this plan and verbalizes understanding of instructions. He was given the opportunity to ask questions and all questions answered. ? Thank you for allowing me to participate in his care Medications Refilled pantoprazole take one tablet half an hour before breakfast 40 mg PO DAILY 90 tabs 2RF K21.9 TODAY'S VISIT Patient is here today for follow-up. Patient reports that he has been feeling fairly well. Reports pantoprazole has been working. Occasional postprandial abdominal bloating without pain or cramping. Patient denies acid reflux, dyspepsia, dysphagia or odynophagia. Patient reports that he is moving his bowels well. Taking MiraLax. Denies melena, hematochezia, unintentional weight loss or ribbon like stools. Patient had colonoscopy in October of last year as well as upper endoscopy. Tubular adenoma found and recommendation was made for 3 years follow-up. Patient reports that he tries to eat some vegetables and tries to change his diet. [facility] Medical History Tubular adenoma of colon Diverticulitis Obstructive sleep apnea (adult) (pediatric) Obesity Diabetes mellitus type II, controlled Inflammatory arthritis Osteoarthritis of hand Erectile dysfunction Decreased libido Elevated prostate specific antigen [PSA] Umbilical hernia Essential (primary) hypertension Gastro-esophageal reflux disease without esophagitis Type 2 diabetes mellitus with hyperglycemia Generalized anxiety disorder Basal cell carcinoma of skin Surgical History History of nasal surgery History of umbilical hernia repair Family History Sister Intestinal cancer Mother No problems noted. Father No problems noted. Paternal Grandfather No problems noted. 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 [employer] Current occupational exposures/hazards: No Cognitive needs: No Hearing needs: No Vision needs: Yes (Glasses) Review of Systems Const Denies weight gain and Denies weight loss ENT Reports no additional complaints, Denies dysphagia and Denies odynophagia Card Reports no additional complaints Resp Reports no additional complaints GI Denies abdominal pain, Denies belching, Denies melena, Denies bloating, Denies change in bowel habits, Denies dysphagia, Denies excessive flatus, Denies dyspepsia, Denies heartburn, Denies diarrhea, Denies loose stools, Denies nausea, Denies odynophagia and Denies vomiting Reports no additional complaints Musc Reports no additional complaints Neuro Reports no additional complaints Psych Reports no additional complaints Endo Reports no additional complaints Physical Exam Vital Signs: Last Vital Signs Pulse 98 08/06/24 08:34 BP 136/82 08/06/24 08:34 Pulse Ox 98 08/06/24 08:34 Oxygen Delivery Method Room Air 08/06/24 08:34 BMI result Body Mass Index 36.5 Const General: healthy appearing and no acute distress Nutritional Appearance: obese Orientation/consciousness: patient oriented x3 Resp Effort & Inspection: normal respiratory effort, able to speak in complete sentences, no tracheal deviation and symmetric chest movement Auscultation: clear to auscultation bilaterally Cardio Rate: regular rate GI Inspection: Yes normal to inspection, No distended and Yes obesity Palpation (GI): Soft to palpation, not firm, nontender and No hepatosplenomegaly present Auscultation: normal bowel sounds General: Yes no CVA tenderness Back/Spine/Pelvis Back: no CVA tenderness Skin General skin exam: elasticity normal, turgor normal and dry skin Neuro General: patient oriented x3 Psych Appearance: grossly normal Mental Status: mental status grossly normal Assessment & Plan Assessment & Plan (1) GERD (gastroesophageal reflux disease): Code(s): K21.9 - Gastro-esophageal reflux disease without esophagitis Category: Medical Qualifiers: Esophagitis presence: without esophagitis Qualified Code(s): K21.9 - Gastro-esophageal reflux disease without esophagitis (2) Tubular adenoma of colon: Code(s): D12.6 - Benign neoplasm of colon, unspecified Category: Medical (3) Postprandial abdominal bloating: Code(s): R14.0 - Abdominal distension (gaseous) (4) Diverticulosis: Code(s): K57.90 - Diverticulosis of intestine, part unspecified, without perforation or abscess without bleeding Plan Patient will continue taking pantoprazole. Avoid dietary triggers and late night snacking. Staying upright for minimum 3 hours after meals discussed with patient. Patient will increase fiber and fluid intake. Continue MiraLax daily. Follow-up in 6 months, sooner on as needed basis. He is agreeable to plan of care and verbalizes understanding of instructions. He was given the opportunity to ask questions and all questions answered. Thank you for allowing me to participate in his care Coding Level of Care Code Est Pt Level 3 (86175) Diagnoses Gastroesophageal reflux disease without esophagitis K21.9 Esophagitis presence: without esophagitis Tubular adenoma of colon D12.6 Postprandial abdominal bloating R14.0 Diverticulosis K57.90 Time Spent (min) 25 Comment 15 minutes spent with patient and additional 10 minutes spent reviewing his records
[2024-08-06 08:34] VITALS: BP 136/82; PULSE 98; O2SAT 98; BMI 36.5
== END 2024-08-06 09:18 | disposition home or self-care (01) ==
PROVIDERS: PCP Physician Assistant; Visit Provider Nurse Practitioner Family
DX: K21.9 Gastro-esophageal reflux disease without esophagitis (principal); D12.6 Benign neoplasm of colon, unspecified; R14.0 Abdominal distension (gaseous); K57.90 Diverticulosis of intestine, part unspecified, without perforation or abscess without bleeding
CPT/HCPCS: 99213

== ENCOUNTER 2024-08-10 06:30 | Outpatient (REF) | payer OTHER, SELFPAY ==
[2024-08-10 07:51] LABS: Hematocrit 39.1 % (42.0-52.0); Hemoglobin 12.8 g/dl (14.0-18.0); Mean Corpuscular HGB Conc 32.7 g/dl (31.0-36.0); Mean Corpuscular Hemoglobin 32.9 pg (27.0-33.0); Mean Corpuscular Volume 100.5 fL (80.0-98.0); Mean Platelet Volume 9.5 fL (9.4-12.4); Platelet Count 234 X10*3/uL (160-400); Red Blood Count 3.89 X10*6/uL (4.60-5.80); Red Cell Distribution Width 12.8 % (11.0-16.0); White Blood Count 5.1 X10*3/uL (4.8-10.8)
[2024-08-10 08:28] LABS: Alanine Aminotransferase 30 U/L (0-40); Alkaline Phosphatase 62 U/L (39-117); Anion Gap 11 (12-20); Aspartate Amino Transferase 33 U/L (5-37); Bilirubin Total 0.4 mg/dL (0.0-1.0); Blood Urea Nitrogen 27 mg/dL (9-16); Carbon Dioxide 27 mmol/L (22-29); Chloride 104 mmol/L (96-108); Cholesterol 186 mg/dL (<200); Estimated Glomerular Filt Rate > 60; Glucose Fasting 153 mg/dL (60-99); HDL Cholesterol 48 mg/dL (>40); LDL Cholesterol Calculated 103 mg/dL (<100); Potassium 4.3 mmol/L (3.3-5.1); Sodium 138 mmol/L (135-145); Total Protein 6.6 g/dL (6.5-8.0); Triglycerides 177 mg/dL (<150)
== END 2024-08-10 06:31 | disposition home or self-care (01) ==
LOC: HO.LAB 06:30
PROVIDERS: PCP Physician Assistant; Visit Provider Physician Assistant
DX: E11.65 Type 2 diabetes mellitus with hyperglycemia (principal); E78.2 Mixed hyperlipidemia
CPT/HCPCS: 36415; 80053; 80061; 85027

== ENCOUNTER 2024-10-30 08:30 | Outpatient (AMB) | payer OTHER, SELFPAY ==
[2024-10-30 08:46] VITALS: BMI 31.8
--- NOTE | 2024-10-30 08:46 | A.OFFVIS_ITS ---
VS Expanded 10/30/24 08:46 11/07/24 10:34 Height 5 ft 3 in 5 ft 3 in Weight 179 lb 10.828 oz 180 lb BMI 31.8 31.9 Intake Visit Reasons: T2DM Allergies ciprofloxacin [CIPROFLOXACIN] Allergy (Severe, Verified 08/06/24 08:29) Anaphylaxis naproxen Adverse Reaction (Mild, Verified 08/06/24 08:29) Abdominal Pain Nutrition Presentation Details: Pt presents for MNT for T2DM Pt reports he is no longer on ozempic related to inc vomiting/diarrhea around Aug 2024 Pt reports he is feeling more comfortable, he tries to work on reducing high acidic foods due to hx of GERD Typical meal: muffin (beth) and applesauce and orange juice 1:30 pm baked scrod with coleslaw and diet coke (at restaurnat) 7 pm stuffed shell (wth mozarella and ricotta) diet root beer (chipotle ranch salad dressing) and few bite of plain [place] bread 8-9 pm sorbeto physical activity : ADL eoth/smoking: denies BS Monitoring Most Recent Diabetes Results: Cholesterol 186 mg/dL (<200) 08/10/24 HDL Cholesterol 48 mg/dL (>40) 08/10/24 Triglycerides 177 mg/dL (<150) H 08/10/24 Creatinine 1.11 mg/dL (0.5-1.4) 08/10/24 Blood Urea Nitrogen 27 mg/dL (9-16) H 08/10/24 Sodium 138 mmol/L (135-145) 08/10/24 Potassium 4.3 mmol/L (3.3-5.1) 08/10/24 Chloride 104 mmol/L (96-108) 08/10/24 Carbon Dioxide 27 mmol/L (22-29) 08/10/24 Calcium 9.0 mg/dL (8.4-10.2) 08/10/24 AST 33 U/L (5-37) 08/10/24 ALT 30 U/L (0-40) 08/10/24 Total Protein 6.6 g/dL (6.5-8.0) 08/10/24 Albumin 4.0 g/dL (3.5-5.0) 08/10/24 AIZ-Wreaudf-Pi.Jeor Equation Height: 5 ft 3 in Weight: 180 lb Resting Metabolic Rate: 1471.45 Calculated Activity Level: Mild Activity Calories Needed to Maintain Weight: 2022.24 PFSH Medical History Tubular adenoma of colon Diverticulitis Obstructive sleep apnea (adult) (pediatric) Obesity Diabetes mellitus type II, controlled Inflammatory arthritis Osteoarthritis of hand Erectile dysfunction Decreased libido Elevated prostate specific antigen [PSA] Umbilical hernia Essential (primary) hypertension Gastro-esophageal reflux disease without esophagitis Type 2 diabetes mellitus with hyperglycemia Generalized anxiety disorder Basal cell carcinoma of skin Surgical History History of nasal surgery History of umbilical hernia repair Family History Sister Intestinal cancer Mother No problems noted. Father No problems noted. Paternal Grandfather No problems noted. 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 Used wt : 94 kg (10/2022) ( 87 kg on 07/2023), 81 kg (11/06) Est kcal as per MSJ: 8 (40% carb, 30% fat/prot) Est fluid needs: 2350 ml/d (25 ml/kg bw) Rec fiber: increase to 8-10 g per day and gradually increase to 35 g or as tolerated Rec Na: < 2000 mg /d Educate patient on: (R= Reviewed, V = verbalizes understanding N/R= Needs review N/A= not applicable) * Food sources of carbohydrates and serving adequate serving sizes : R,V * Difference between complex carbohydrates and simple carbohydrates, role of fiber: R,V * Differences between fats (MUFA/PUFA/saturated fats, trans fats) and food sources of various fats: R,V * Food sources of sodium and salt and healthy modifications for heart health and kidney health: R ,V * Vitamins and minerals: R , V * How to interpret food labels: R V * Healthy Plate method concept: R V * Physical activity: benefits and precaution: R V * hypoglycemia prevention and treatment: R, V * low acid and low lactose food options: R Patient Instructions: Choose low acid foods (apple /apple juice diluted with water ) instead of orange/orange juice - see list of low acid foods Choose olive oil at restaurants , ask for sauces on the side Choose baked potato or sweet potato Coding Level of Care Code Nutr Indiv Subseq (44721) Diagnoses Type 2 diabetes mellitus with hyperglycemia, without long-term current use of insulin E11.65 Diabetes mellitus intermediate insulin use: without termite inspector use Diabetes mellitus complication status: with hyperglycemia Time Spent (min) 30
[2024-11-07 10:34] VITALS: BMI 31.9
== END 2024-10-30 09:29 | disposition home or self-care (01) ==
LOC: HO.ENCR 08:31
PROVIDERS: PCP Physician Assistant; Visit Provider Dietitian, Registered
DX: E11.65 Type 2 diabetes mellitus with hyperglycemia (principal)

== ENCOUNTER → 2024-10-30 08:30 | Outpatient (BNVA) | payer OTHER, SELFPAY | PROVIDERS: PCP Physician Assistant; Visit Provider Dietitian, Registered | DX: E11.65 Type 2 diabetes mellitus with hyperglycemia (principal); Z71.3 Dietary counseling and surveillance | CPT/HCPCS: 97803 ==

== ENCOUNTER 2024-11-27 08:30 | Outpatient (AMB) | payer OTHER, SELFPAY ==
[2024-11-27 08:37] VITALS: BMI 32.1
--- NOTE | 2024-11-27 08:37 | A.OFFVIS_ITS ---
VS Expanded 11/27/24 08:37 Height 5 ft 3 in Weight 180 lb 15.992 oz BMI 32.1 Intake Visit Reasons: T2DM Allergies ciprofloxacin [CIPROFLOXACIN] Allergy (Severe, Verified 08/06/24 08:29) Anaphylaxis naproxen Adverse Reaction (Mild, Verified 08/06/24 08:29) Abdominal Pain Nutrition Presentation Details: Pt presents for MNT f/u T2DM Pt reports tolerating foods better, since off of ozempic Reports now tolerating milk without difficulties Pt reports having GI side effects when choosing acidic foods (example chilli/tomato sauce) etoh: occ Breakfast: 1/2 sandwich , tea lunch at work: kimchi/beef/rice /milk dinner pasta bolognese, spinach, water snack:fruits/crackers Reports taking a multivitamin with iron Pt reports monitoring bg in the fasting state and ranging from 130-150 BS Monitoring Most Recent Diabetes Results: Cholesterol 186 mg/dL (<200) 08/10/24 HDL Cholesterol 48 mg/dL (>40) 08/10/24 Triglycerides 177 mg/dL (<150) H 08/10/24 Creatinine 1.11 mg/dL (0.5-1.4) 08/10/24 Blood Urea Nitrogen 27 mg/dL (9-16) H 08/10/24 Sodium 138 mmol/L (135-145) 08/10/24 Potassium 4.3 mmol/L (3.3-5.1) 08/10/24 Chloride 104 mmol/L (96-108) 08/10/24 Carbon Dioxide 27 mmol/L (22-29) 08/10/24 Calcium 9.0 mg/dL (8.4-10.2) 08/10/24 AST 33 U/L (5-37) 08/10/24 ALT 30 U/L (0-40) 08/10/24 Total Protein 6.6 g/dL (6.5-8.0) 08/10/24 Albumin 4.0 g/dL (3.5-5.0) 08/10/24 [facility] Medical History Tubular adenoma of colon Diverticulitis Obstructive sleep apnea (adult) (pediatric) Obesity Diabetes mellitus type II, controlled Inflammatory arthritis Osteoarthritis of hand Erectile dysfunction Decreased libido Elevated prostate specific antigen [PSA] Umbilical hernia Essential (primary) hypertension Gastro-esophageal reflux disease without esophagitis Type 2 diabetes mellitus with hyperglycemia Generalized anxiety disorder Basal cell carcinoma of skin Surgical History History of nasal surgery History of umbilical hernia repair Family History Sister Intestinal cancer Mother No problems noted. Father No problems noted. Paternal Grandfather No problems noted. 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 [employer] Current occupational exposures/hazards: No Cognitive needs: No Hearing needs: No Vision needs: Yes (Glasses) Assessment & Plan Assessment & Plan (1) DMII (diabetes mellitus, type 2): Comment: Code(s): E11.9 - Type 2 diabetes mellitus without complications Category: Medical Qualifiers: Diabetes mellitus terminal computer operator insulin use: without intermediate use Diabetes mellitus complication status: with hyperglycemia Qualified Code(s): E11.65 - Type 2 diabetes mellitus with hyperglycemia Plan: Reviewed low acidic foods and nutrient dense foods for DM control and weight control Used wt : 94 kg (10/2022) ( 87 kg on 07/2023), 81 kg (11/06), 82 kg (12/07) Est kcal as per MSJ: 1928 (40% carb, 30% fat/prot), Est fluid needs: 2350 ml/d (25 ml/kg bw) Rec fiber: increase to 8-10 g per day and gradually increase to 35 g or as tolerated Rec Na: < 2000 mg /d Educate patient on: (R= Reviewed, V = verbalizes understanding N/R= Needs review N/A= not applicable) * Food sources of carbohydrates and serving adequate serving sizes : R,V * Difference between complex carbohydrates and simple carbohydrates, role of fiber: R,V * Differences between fats (MUFA/PUFA/saturated fats, trans fats) and food sources of various fats: R,V * Food sources of sodium and salt and healthy modifications for heart health and kidney health: R ,V * Vitamins and minerals: R , V * How to interpret food labels: R V * Healthy Plate method concept: R V * Physical activity: benefits and precaution: R V * hypoglycemia prevention and treatment: R, V * low acid food options: R Patient Instructions: Choose low acidic fruits (pear, apples in place of grapefruit, oranges), reduce sauces - see list of low acid foods Choose yogurt as snack Watch on portion sizes of meals, smaller food portions are better tolerated Coding Level of Care Code Nutr Indiv Subseq (04693) Diagnoses Type 2 diabetes mellitus with hyperglycemia, without long-term current use of insulin E11.65 Diabetes mellitus terminal computer operator insulin use: without terminal computer operator use Diabetes mellitus complication status: with hyperglycemia Time Spent (min) 30
== END 2024-11-27 09:11 | disposition home or self-care (01) ==
LOC: HO.ENCR 08:32
PROVIDERS: PCP Physician Assistant; Visit Provider Dietitian, Registered
DX: E11.65 Type 2 diabetes mellitus with hyperglycemia (principal)

== ENCOUNTER → 2024-11-27 08:30 | Outpatient (BNVA) | payer OTHER, SELFPAY | PROVIDERS: PCP Physician Assistant; Visit Provider Dietitian, Registered | DX: E11.65 Type 2 diabetes mellitus with hyperglycemia (principal); Z71.3 Dietary counseling and surveillance; Z79.899 Other long term (current) drug therapy | CPT/HCPCS: 97803 ==

== ENCOUNTER 2025-01-11 06:05 | Outpatient (REF) | payer OTHER, SELFPAY ==
[2025-01-11 07:07] LABS: Hematocrit 32.7 % (42.0-52.0); Hemoglobin 10.8 g/dl (14.0-18.0); Mean Corpuscular Hemoglobin 33.3 pg (27.0-33.0); Mean Corpuscular Volume 100.9 fL (80.0-98.0); Mean Platelet Volume 9.4 fL (9.4-12.4); Platelet Count 227 X10*3/uL (160-400); Red Blood Count 3.24 X10*6/uL (4.60-5.80); Red Cell Distribution Width 12.7 % (11.0-16.0); White Blood Count 4.7 X10*3/uL (4.8-10.8)
[2025-01-11 07:31] LABS: Estimated Average Glucose 154 mg/dL
[2025-01-11 07:42] LABS: Alanine Aminotransferase 16 U/L (0-40); Albumin Level 4.2 g/dL (3.5-5.0); Alkaline Phosphatase 67 U/L (39-117); Anion Gap 13 (12-20); Aspartate Amino Transferase 21 U/L (5-37); Bilirubin Total 0.4 mg/dL (0.0-1.0); Blood Urea Nitrogen 37 mg/dL (9-16); Calcium 9.3 mg/dL (8.4-10.2); Carbon Dioxide 27 mmol/L (22-29); Chloride 107 mmol/L (96-108); Cholesterol 171 mg/dL (<200); Estimated Glomerular Filt Rate 43; Glucose Fasting 157 mg/dL (60-99); HDL Cholesterol 44 mg/dL (>40); LDL Cholesterol Calculated 107 mg/dL (<100); Potassium 4.7 mmol/L (3.3-5.1); Sodium 142 mmol/L (135-145); Total Protein 6.6 g/dL (6.5-8.0); Triglycerides 101 mg/dL (<150)
[2025-01-11 08:27] LABS: Creatinine Urine 104.91 mg/dL; Microalbum/Creatinine Ratio Ur 12.3 ug/mg cr (<30)
== END 2025-01-11 06:06 | disposition home or self-care (01) ==
LOC: HO.LAB 06:05
PROVIDERS: PCP Physician Assistant; Visit Provider Physician Assistant
DX: E11.65 Type 2 diabetes mellitus with hyperglycemia (principal)
CPT/HCPCS: 36415; 80053; 80061; 82043; 82570; 83036; 85027

== ENCOUNTER 2025-01-14 08:38 | Outpatient (AMB) | payer OTHER, SELFPAY ==
--- NOTE | 2025-01-14 08:51 | A.OFFPC_ITS ---
Vital Signs 01/14/25 08:53 Height 5 ft 2.99 in Weight 187 lb 4 oz BMI 33.2 BP 120/80 Blood Pressure Location Lt brachial Position Sitting Pulse 82 Pulse Source Pulse Oximeter Temp 97.3 F Temp Source Temporal Artery Scan Pulse Oximetry (%) 98 Oxygen Delivery Method Room Air Intake Visit Reasons: 6mth f/u Intake Note: Patient is here to follow up on DM, HTN, HLD, Asthma. Earth Mover Required: No Records Management Associate: Present Accompanied by: Spouse Allergies ciprofloxacin [CIPROFLOXACIN] Allergy (Severe, Verified 01/14/25 09:01) Anaphylaxis semaglutide [From Ozempic] Adverse Reaction (Intermediate, Verified 01/14/25 09:04) Abdominal Pain naproxen Adverse Reaction (Mild, Verified 01/14/25 09:01) Abdominal Pain Medication List - Last Reconciled 01/14/25 by Trey Lin PA-C albuterol sulfate 90 mcg/actuation 2 puffs inhalation Q6H PRN 30 days atorvastatin 20 mg PO DAILY 90 days blood sugar diagnostic (FreeStyle Lite Strips) Testing once a day blood-glucose meter (FreeStyle [place] kit) Testing once a day blood-glucose meter (FreeStyle Lite Meter kit) As directed fluticasone propionate 50 mcg/actuation (Allergy Relief (fluticasone)) 2 sprays intranasal DAILY glipizide ER 5 mg PO DAILY 90 days hydrochlorothiazide 25 mg PO DAILY 90 days loperamide 2 mg PO Q8H PRN 7 days metformin 1,000 mg PO BID 90 days multivitamin with iron 1 tab PO DAILY olmesartan 40 mg PO DAILY 90 days ondansetron 4 mg PO Q8H PRN 10 days pantoprazole 40 mg PO QAM pioglitazone (Actos) 15 mg PO DAILY 90 days polyethylene glycol 3350 (Miralax) 17 grams PO DAILY semaglutide (Ozempic) 0.25 mg (0.368 mL) subcut QWEEK 4 weeks semaglutide (Ozempic) 0.5 mg (0.736 mL) subcut QWEEK 4 weeks Tobacco use date assessed: 01/14/25 Fall risk assessment: No Falls in past year Last assessed Fall Risk: 01/14/25 Dental Screening Dental Screen Date: 01/14/25 Did you have a dental visit in the last 12 months?: Yes Did you have a dental problem in the last 6 months where you did not have access to dental care?: No Was dental information given to patient?: Patient has dentist HPI 6mth f/u HPI Details Patient is a 69-year-old male here today for a follow-up visit Patient has a past medical history significant for type 2 diabetes, hypertension, obesity, hyperlipidemia. Recently retired from his job. .. Type 2 diabetes:? Patient's blood sugars have been much better. Patient was placed back on glipizide 5 mg. Has been trialed on Ozempic though was not able to tolerate due to GI side effects. He continues on pioglitazone 15 mg and metformin 2 g daily. Most recent A1c is 7.0 from 6.8. .. Renal impairment: Noted elevated GFR most recent labs .. Hypertension:? Blood pressure today in office acceptable.? He denies any headaches, chest discomforts are dizziness.? He does not monitor his blood pressure at home and will start doing so. .. Chronically elevated PSA: Followed by Urology, denies any urinary symptoms. Has chronically elevated PSA around 13. Reports he has had biopsies an evaluations though no cancer. .. Obesity: Unfortunately has gained weight since last office visit.? Patient does understand his BMI is over 30 will work on being more physically active and adapting to better eating habits to reduce weight .. GERD: Continues on PPI, has been avoiding? GI irritant food Laboratory Tests 01/26/24 08/10/24 01/11/25 06:24 06:38 06:30 RBC 3.24 L Hgb 10.8 L MCV 100.9 H Creatinine 1.28 1.11 1.61 H Estimated GFR > 60 43 Fasting Glucose 125 H 157 H Hemoglobin A1c % 7.0 H Triglycerides 132 Cholesterol 172 LDL Cholesterol, C alc 103 H 107 H PSA Screen 10.56 H Urine Microalbumin 13.0 PFSH Medical History Tubular adenoma of colon Diverticulitis Obstructive sleep apnea (adult) (pediatric) Obesity Diabetes mellitus type II, controlled Inflammatory arthritis Osteoarthritis of hand Erectile dysfunction Decreased libido Elevated prostate specific antigen [PSA] Umbilical hernia Essential (primary) hypertension Gastro-esophageal reflux disease without esophagitis Type 2 diabetes mellitus with hyperglycemia Generalized anxiety disorder Basal cell carcinoma of skin Surgical History History of nasal surgery History of umbilical hernia repair Family History Sister Intestinal cancer Mother No problems noted. Father No problems noted. Paternal Grandfather No problems noted. 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 1. Little interest or pleasure in doing things: not at all 2. Feeling down, depressed, or hopeless: not at all 3. Trouble falling or staying asleep, or sleeping too much: nearly every day 4. Feeling tired or having little energy: more than half the days 5. Poor appetite or overeating: not at all 6. Feeling bad about yourself - or that you are a failure or have let yourself or your family down: not at all 7. Trouble concentrating on things, such as reading the newspaper or watching television: not at all 8. Moving or speaking so slowly that other people could have noticed. Or the opposite - being so fidgety or restless that you have been moving around a lot more than usual: not at all 9. Thoughts that you would be better off or of hurting yourself in some way: not at all Total score: 5 Depression Screening Interpretation: Positive Depression Screening Follow-up: Existing condition Depression Screening Done: Yes 27734 - PHQ-9 Billing: Yes Source: Developed by Drs. Refugio Eduardo, Mya Salamanca, Reid Inman and colleagues, with an educational sahil from [employer]. Thrive Questionnaire Date Thrive assessed: 01/14/25 I am a: Patient What is your living situation today?: I have a steady place to live Within the past 12 months, did the food you bought not last and you didn't have the money to get more?: Never true Within the past 12 months, did you worry whether your food would run out before you got money to buy more?: Never true Do you have trouble paying for medicines?: No Do you have trouble getting transportation to medical appointments?: No Do you have trouble paying your heating and electricity bill?: No Do you have trouble taking care of your child, family member or friend?: No Do you have trouble with day-to-day activities such as bathing, preparing meals, shopping, managing finances, etc.?: No Are you currently unemployed and looking for a job?: No Are you interested in more education?: No Please select the resources that you would like help with: None Currently or been in a relationship where the following occur: No concerns reported THRIVE Score: 0 AUDIT C Alcohol Use Questionnaire (AUDIT-C) 1. How often do you have a drink containing alcohol?: 2-4 times a month 2. How many drinks containing alcohol do you have on a typical day when you are drinking?: 1 or 2 3. How often do you have six or more drinks on one occasion?: Never Total Score: 2 ELVIE-7 AMB Questionnaire ELVIE-7 Date ELVIE - 7 assessed: 01/14/25 Feeling nervous, anxious, or on edge: 0 = Not at all Not being able to stop or control worryin = Not at all Worrying too much about different things: 0 = Not at all Trouble relaxin = Not at all Being so restless that it is hard to sit still: 0 = Not at all Becoming easily annoyed or irritable: 0 = Not at all Feeling afraid as if something awful might happen: 0 = Not at all Total ELVIE-7 score (0-4 normal; 5-9 mild; 10-14 moderate; 15-21 severe): 0 Source: Developed by Drs. Refugio Eduardo, Mya Salamanca, Reid Inman and colleagues, with an educational sahil from [employer]. ELVIE-7 Assessment Billing ELVIE-7 Assessment Tool: ELVIE-7 Assessment 19135 Review of Systems Const Denies headache(s) Eyes Denies loss of vision ENT Denies vertigo, Denies dizziness, Denies headache(s) and Denies sore throat Card Denies chest pain, Denies leg edema and Denies lightheadedness Resp Denies cough, Denies hemoptysis and Denies wheezing GI Denies abdominal pain, Denies melena, Denies constipation, Denies diarrhea and Denies vomiting Denies dysuria, Denies urinary frequency and Denies urinary urgency Musc Denies arthralgias, Denies joint swelling, Denies numbness and Denies tingling Neuro Denies Abnormal speech present, Denies behavioral changes, Denies vertigo, Denies dizziness, Denies headache(s), Denies loss of vision, Denies memory loss, Denies numbness and Denies tingling Psych Denies anxiety, Denies behavioral changes, Denies depression, Denies memory loss and Denies panic attacks Aly/Lymph Denies easy bleeding and Denies easy bruising Aller/Immun Denies wheezing Physical exam (Primary Care) Vital Signs: Last Vital Signs Temp 97.3 F 01/14/25 08:53 Pulse 82 01/14/25 08:53 BP 120/80 01/14/25 08:53 Pulse Ox 98 01/14/25 08:53 Oxygen Delivery Method Room Air 01/14/25 08:53 BMI result Body Mass Index 33.2 BMI Assessment/Plan discussion: High Tobacco/Smoking Status: Tobacco use Status Tobacco use date assessed 01/14/25 01/14/25 08:58 Patient Tobacco Use Status Former Tobacco user 01/14/25 08:58 Tobacco use type Cigarette 01/14/25 08:58 e-Cigarette/Vaping Use Never Used 01/14/25 08:58 PHQ-9: PHQ-9 Score PHQ-9: Total score 5 01/14/25 08:58 Depression Screening Interpretation: Positive Depression Screening Follow-up: Existing condition Thrive Assessment: Date of Thrive Assessment Date Thrive assessed 01/14/25 01/14/25 08:58 Currently or been in a relationship where the following occur: No concerns reported Const General: healthy appearing, no acute distress, alert and awake Nutritional Appearance: well nourished Orientation/consciousness: oriented to person, oriented to place and oriented to time HENMT Ears: TM's normal bilaterally General nose exam: Normal nasal mucous membranes and turbinates present Eyes Conjunctivae: conjunctivae normal Sclerae: sclerae normal Pupils: Equal, round and reactive pupils present Neck Neck: Yes no lymphadenopathy and Yes no JVD Thyroid: Thyroid normal Carotids: no bruits Resp Effort & Inspection: normal respiratory effort and not tachypneic Auscultation: no crackles, no rales, no rhonchi and no wheezes Cardio Rate: regular rate Rhythm: regular rhythm Heart sounds: no murmurs and normal S1 and S2 GI Palpation (GI): Soft to palpation, nontender, no hepatomegaly and no splenomegaly Auscultation: normal bowel sounds Skin General skin exam: no rashes or lesions noted and dry skin Neuro General: oriented to person, oriented to place and oriented to time Cranial nerves: Yes Equal, round and reactive pupils present Speech: No Abnormal speech present Gait exam (Neuro): Normal gait present Motor exam (neuro): no tremor noted Extrem Right upper extremity: full ROM Left upper extremity: full ROM Right lower extremity: full ROM; no edema Left lower extremity: full ROM; no edema Psych Mental Status: mental status grossly normal Speech and movement: Normal speech and movement present Affect: normal affect Attitude: cooperative Thought process: Normal thought process present Coding Level of Care Code Est Pt Level 4 (63845) Diagnoses Type 2 diabetes mellitus with hyperglycemia, without long-term current use of insulin E11.65 Diabetes mellitus chcf insulin use: without long term care social worker use Diabetes mellitus complication status: with hyperglycemia Primary hypertension I10 Hypertension type: primary hypertension Elevated PSA R97.20 Mixed hyperlipidemia E78.2 Hyperlipidemia type: mixed hyperlipidemia Renal function impairment N28.9 Class 1 obesity E66.811 Additional Codes PHQ-9 - 92457 - PHQ-9 Billing: Yes ([id number]) ELVIE-7 Assessment Billing - ELVIE-7 Assessment Tool: ELVIE-7 Assessment 93850 ([id number]) Assessment & Plan Assessment & Plan (1) DMII (diabetes mellitus, type 2): Comment: Code(s): E11.9 - Type 2 diabetes mellitus without complications Category: Medical Qualifiers: Diabetes mellitus chcf insulin use: without chcf use Diabetes mellitus complication status: with hyperglycemia Qualified Code(s): E11.65 - Type 2 diabetes mellitus with hyperglycemia Plan: Patient's type 2 diabetes well controlled with A1c at 7.0. He was not able to tolerate Ozempic due to GI side effects. He is considering a alternative GLP 1. Will increase his Actos to 30 mg for better glycemic control.. Will continue his current antihyperglycemic medication with goal A1c to remain below 7.0 (2) HTN (hypertension): Code(s): I10 - Essential (primary) hypertension Category: Medical Qualifiers: Hypertension type: primary hypertension Qualified Code(s): I10 - Essential (primary) hypertension Plan: Patient's blood pressure acceptable today in office. Will continue his current dose of anti hypertensive medication with goal blood pressure to be below 140/90 (3) Elevated PSA: Code(s): R97.20 - Elevated prostate specific antigen [PSA] Category: Medical Plan: As per HPI patient has a chronically elevated PSA in his followed by Urology. Has had extensive workup though no prostate malignancy found. He denies any urinary symptoms. (4) HLD (hyperlipidemia): Code(s): E78.5 - Hyperlipidemia, unspecified Category: Medical Qualifiers: Hyperlipidemia type: mixed hyperlipidemia Qualified Code(s): E78.2 - Mixed hyperlipidemia Plan: Patient's most recent lipid panel showing excellent control of his total cholesterol though LDL slightly elevated at 107, he will work on dietary modifications.. He will continue his current dose of statin therapy with goal LDL to remain below 100 (5) Renal function impairment: Code(s): N28.9 - Disorder of kidney and ureter, unspecified Category: Medical Plan: Noted renal impairment and most recent labs, likely due to dehydration. Will recheck nonfasting basic metabolic panel to ensure stable. If elevated will consider Nephrology evaluation. (6) Class 1 obesity: Code(s): E66.811 - Obesity, class 1 Category: Medical Plan: Patient does understand his BMI is over 30 will work on being more physically active and adapt to better eating habits to reduce his weight Orders: Orders Comprehensive [place]. Panel Fast 5 Months I10 - Essential (primary) hypertension Hemoglobin A1c 5 Months E11.65 - Type 2 diabetes mellitus with hyperglycemia Basic Metabolic Panel Today N28.9 - Disorder of kidney and ureter, unspecified Complete Blood Count no Diff 5 Months I10 - Essential (primary) hypertension Lipid Panel 5 Months E78.2 - Mixed hyperlipidemia Medications: New pioglitazone 30 mg PO DAILY 90 days 90 tabs 1RF E11.65 - Type 2 diabetes mellitus with hyperglycemia Changed From fluticasone propionate 50 mcg/actuation (Allergy Relief (fluticasone)) administer into each nostril 2 sprays intranasal DAILY To fluticasone propionate 50 mcg/actuation (Allergy Relief (fluticasone)) administer into each nostril 2 sprays intranasal DAILY 30 days PRN 16 grams 2RF allergy symptoms Discontinued semaglutide (Ozempic) for 4 weeks Discontinued Reason: Doctor's Order 0.25 mg (0.368 mL) subcut QWEEK 4 weeks 3 mL 0RF E11.65 - Type 2 diabetes mellitus with hyperglycemia pioglitazone (Actos) Discontinued Reason: Doctor's Order 15 mg PO DAILY 90 days 90 tabs 1RF E11.65 - Type 2 diabetes mellitus with hyperglycemia semaglutide (Ozempic) Discontinued Reason: Doctor's Order 0.5 mg (0.736 mL) subcut QWEEK 4 weeks 3 mL 3RF E11.65 - Type 2 diabetes mellitus with hyperglycemia On Hold glipizide ER Hold Comment: Doctor's Order 5 mg PO DAILY 90 days 90 tabs 0RF E11.65 - Type 2 diabetes mellitus with hyperglycemia Patient Instructions: Goal: A1c to be below 7.0, LDL to be below 100. Barriers: Adherence to physical activity and healthy eating habits
[2025-01-14 08:53] VITALS: BP 120/80; PULSE 82; TEMP 36.3; O2SAT 98; BMI 33.2
--- OUTSIDE RECORDS SUMMARY | 2025-01-14 08:58 | XMS_ITS | Encounter Summary ---
Author Organization [facility] Address [address] [place] [address] Care Team Providers Care Adult And Pediatric Neurologist Name Role Phone Catalina Zarate MD Primary Care Provider Lucian Villarreal MD Primary Care Provider [phone] Lucian Terrazas MD Primary Care Provider [phone] Lucian Terrazas MD Unavailable [phone] [place] [address] Primary Care Provider Unavailabl e Encounter Details Date Type Department Care Team Description 01/06/2011 [employer] Loader Report Orthopedic Surgery - [address] [place] [id number] [address] Social History Tobacco Use Types Packs/Day Years Used Date Smoking Tobacco: Former Cigarettes Q uit: 11/13/1990 Comments:3/4 ppd for about 1 8 years Alcohol Use Standard Drinks/Week Comments Yes 0 (1 standard drink = 0.6 oz pur e alcohol) social Sex Assigned at Date Recorded Not on file documented as of this encounter Plan of Treatment Not on file documented as of this encounter Visit Diagnoses Not on filedocumented in this encounter Care Teams Adult And Pediatric Neurologist Relationship Specialty Start Date End Date Catalina Zarate MD PCP - General 04/10/08 11/18/11 Lucian Terrazas MD [address] [place] [address] PCP - General Internal Medicine 11/19/11 07/23/14 Lucian Terrazas MD [address] [place] [address] PCP - General 07/24/14 09/30/22 [facility], Pcp [address] [place] [id number] PCP - General Internal Medicine 10/01/22 Lucian Terrazas MD [address] [place] [id number] Internal Medicine 07/24/14 documented as of this encounter
== END 2025-01-14 09:28 | disposition home or self-care (01) ==
LOC: HO.HMCH 08:39
PROVIDERS: PCP Physician Assistant; Visit Provider Physician Assistant
DX: E11.65 Type 2 diabetes mellitus with hyperglycemia (principal); I10 Essential (primary) hypertension; E66.811 Obesity, class 1; Z68.33 Body mass index [BMI] 33.0-33.9, adult; R97.20 Elevated prostate specific antigen [PSA]; E78.2 Mixed hyperlipidemia; N28.9 Disorder of kidney and ureter, unspecified

== ENCOUNTER → 2025-01-14 08:38 | Outpatient (BNVA) | payer OTHER, SELFPAY | PROVIDERS: PCP Physician Assistant; Visit Provider Physician Assistant | DX: I10 Essential (primary) hypertension (principal); E11.65 Type 2 diabetes mellitus with hyperglycemia; E78.5 Hyperlipidemia, unspecified; J45.909 Unspecified asthma, uncomplicated; E66.9 Obesity, unspecified; K21.9 Gastro-esophageal reflux disease without esophagitis; R97.20 Elevated prostate specific antigen [PSA]; E78.2 Mixed hyperlipidemia; N28.9 Disorder of kidney and ureter, unspecified; E66.811 Obesity, class 1; Z68.33 Body mass index [BMI] 33.0-33.9, adult | CPT/HCPCS: 96127 ==

== ENCOUNTER 2025-03-26 12:12 | Outpatient (AMB) | payer OTHER, SELFPAY ==
--- NOTE | 2025-03-26 12:17 | A.OFFVIS_ITS ---
Vital Signs 03/26/25 12:18 Height 5 ft 3 in Weight 178 lb 9.191 oz BMI 31.6 BP 115/56 L Blood Pressure Location Lt brachial Position Sitting Pulse 91 Intake Visit Reasons: 6m f/u Intake Note: Pascual presents in the office as a 6 month follow up. CC: He states that he has been feeling okay - he still has gas time to time but he has been okay today. When it happens he is not sure exactly what causes it. He states his stools are always loose but not diarrhea. 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 Avoid dietary triggers and late night snacking. Staying upright for minimum 3 hours after meals discussed with patient. Patient will increase fiber and fluid intake. Continue MiraLax daily. Follow-up in 6 months, sooner on as needed basis. He is agreeable to plan of care and verbalizes understanding of instructions. He was given the opportunity to ask questions and all questions answered. TODAY'S VISIT: Patient is here today for follow-up. Patient reports that he has been doing better, however he states that when he is camping and cooking on a fire grill most often he will have postprandial diarrhea. Patient believes that it is the charcoal that might be causing it. Patient denies melena, hematochezia, unintentional weight loss or ribbon like stools. Patient denies dyspepsia, dysphagia or odynophagia. He currently is taking pantoprazole daily. Acid reflux is suppressed. 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 Patient denies any other GI concerning symptoms [facility] Medical History Tubular adenoma of colon Diverticulitis Obstructive sleep apnea (adult) (pediatric) Obesity Diabetes mellitus type II, controlled Inflammatory arthritis Osteoarthritis of hand Erectile dysfunction Decreased libido Elevated prostate specific antigen [PSA] Umbilical hernia Essential (primary) hypertension Gastro-esophageal reflux disease without esophagitis Type 2 diabetes mellitus with hyperglycemia Generalized anxiety disorder Basal cell carcinoma of skin Surgical History History of nasal surgery History of umbilical hernia repair Family History Sister Intestinal cancer Mother No problems noted. Father No problems noted. Paternal Grandfather No problems noted. 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 [employer] Current occupational exposures/hazards: No Cognitive needs: No Hearing needs: No Vision needs: Yes (Glasses) Review of Systems Const Denies weight gain and Denies weight loss ENT Reports no additional complaints, Denies dysphagia and Denies odynophagia Card Reports no additional complaints Resp Reports no additional complaints GI Denies abdominal pain, Denies belching, Denies melena, Denies bloating, Denies change in bowel habits, Denies dysphagia, Denies excessive flatus, Denies dyspepsia, Denies heartburn, Denies diarrhea, Denies loose stools, Denies nausea, Denies odynophagia and Denies vomiting Reports no additional complaints Musc Reports no additional complaints Neuro Reports no additional complaints Psych Reports no additional complaints Endo Reports no additional complaints Physical Exam Vital Signs: Last Vital Signs Pulse 91 03/26/25 12:18 BP 115/56 L 03/26/25 12:18 BMI result Body Mass Index 31.6 Const General: healthy appearing and no acute distress Nutritional Appearance: obese Orientation/consciousness: patient oriented x3 Resp Effort & Inspection: normal respiratory effort, able to speak in complete sentences, no tracheal deviation and symmetric chest movement Auscultation: clear to auscultation bilaterally Cardio Rate: regular rate GI Inspection: Yes normal to inspection, No distended and Yes obesity Palpation (GI): Soft to palpation, not firm, nontender and No hepatosplenomegaly present Auscultation: normal bowel sounds General: Yes no CVA tenderness Back/Spine/Pelvis Back: no CVA tenderness Skin General skin exam: elasticity normal, turgor normal and dry skin Neuro General: patient oriented x3 Psych Appearance: grossly normal Mental Status: mental status grossly normal Assessment & Plan Assessment & Plan (1) GERD (gastroesophageal reflux disease): Code(s): K21.9 - Gastro-esophageal reflux disease without esophagitis Category: Medical Qualifiers: Esophagitis presence: without esophagitis Qualified Code(s): K21.9 - Gastro-esophageal reflux disease without esophagitis (2) Postprandial abdominal bloating: Code(s): R14.0 - Abdominal distension (gaseous) Plan Continue pantoprazole daily. Avoid dietary triggers and late night snacking. Staying upright for minimum 3 hours after meals discussed with patient. Patient was encouraged to start taking fiber with pre and probiotics 1 and increase to 2 or 3 a day depending on his stools. Patient was encouraged to increase fiber in his diet as well. Avoid greasy food. Follow-up in 1 year, sooner as needed. Patient will be due to go for colonoscopy in 2026. He was encouraged to call us if he will have any GI concerning symptoms. He is agreeable to this plan and verbalizes understanding of instructions. He was given the opportunity to ask questions and all questions answered. Thank you for allowing me to participate in his care Coding Level of Care Code Est Pt Level 3 (13677) Diagnoses Gastroesophageal reflux disease without esophagitis K21.9 Esophagitis presence: without esophagitis Postprandial abdominal bloating R14.0 Time Spent (min) 25 Comment 15 minutes spent with patient and additional 10 minutes spent reviewing his records
[2025-03-26 12:18] VITALS: BP 115/56; PULSE 91; BMI 31.6
--- OUTSIDE RECORDS SUMMARY | 2025-03-26 13:04 | XMS_ITS | Clinical Summary ---
Author Organization [facility] Address [address] [place] [id number] Phone Care Team Providers Care Hot Room Attendant Name Role Phone Lucian Terrazas MD Primary Care Provider + Allergies Active Allergy Reactions Criticality Noted Date Comments Ciprofloxacin Anaphylaxis High 07/05/2014 Naproxen 04/27/2011 Other reaction(s): OTHER Abdominal pains Medications omeprazole (PRILOSEC) 40 MG capsule Take 1 capsule by mouth daily. 01/04/2022 Active olmesartan (BENICAR) 40 mg tablet Take 40 mg by mouth. 11/02/2021 Active metFORMIN (GLUCOPHAGE-XR) 500 MG 24 hr tablet Take 1 tablet by mouth 2 (two) times a day. 11/03/2021 Active hydroCHLOROthia zide (MICROZIDE) 12.5 mg capsule Take 12.5 mg by mouth. 01/04/2022 Active glipiZIDE (GLUCOTROL XL) 5 MG 24 hr tablet Take 5 mg by mouth 2 (two) times a day. 01/11/2022 Active atorvastatin (LIPITOR) 40 MG tablet Take 1 tablet by mouth daily. 11/02/2021 Active albuterol 90 mcg/actuation inhaler Inhale 2 puffs into the lungs. 12/22/2020 Active Active Problems No known active problems Social History Tobacco Use Types Packs/Day Years Used Date Smoking Tobacco: Never Smokeless Tobacco: Never Education Answer Date Recorded Are you interested in more education? Not on reji e 12/11/2022 Are you concerned about learning? Not on file 12/11/2022 No 12/11/2022 No 12/11/2022 Digital Access Answer Date Recorded No 01/09/2023 No 01/09/2023 No 01/09/2023 Reliable internet access at home? Not on file 01/09/2023 Device with a working camera? Not on file Sex and Gender Information Value Date Recorded Sex Assigned at Not on file Legal Sex Male 10:34 AM EST Gender Identity Not on file Sexual Orientation Not on file Last Filed Vital Signs Vital Sign Reading Time Taken Comments Blood Pressure - - Pulse - - Temperature - - Respiratory Rate - - Oxygen Saturation - - Inhaled Oxygen Concentration - - Weight 88.9 kg (196 lb) 03/02/2022 10:16 AM EDT Height 162.6 cm (5' 4 ) 03/02/2022 10:16 AM EDT Body Mass Index 33.64 03/02/2022 10:16 AM EDT Plan of Treatment Health Maintenance Due Date Last Done Comments CREATININE LEVEL 1953 DEPRESSION SCREENING 1965 HEPATITIS C SCREENING 1971 COLOGUARD 1998 COLONOSCOPY 1998 COLORECTAL CANCER SCREENING 1998 FIT TEST 1998 FOBT 1998 SIGMOIDOSCOPY 1998 VIRTUAL COLONOSCOPY 1998 PNEUMOCOCCAL VACCINES (50+ years) (1 of 1 - PCV) 2003 ZOSTER VACCINES (1 of 2) 2003 Adult Td,Tdap Booster 03/26/2021 03/26/2011 COVID-19 VACCINE (4 - 2023-2 5 season) 2024 09/19/2021, 11/22/2020, 11/01/2020 LIPID PANEL 07/03/2026 07/03/2021 RSV VACCINE (1 - 1-dose 75+ series) 2028 SMOKING STATUS SCREENING (On ce After 26 Yrs) Completed 03/02/2022 HEPATITIS A VACCINES Aged Out No long er eligible based on patient's age to complete this topic HIB VACCINES Aged Out No longer eligi ble based on patient's age to complete this topic MENINGOCOCCAL VACCINES (ACWY) Aged Out No longer eligible based on patient's age to complete this topic MENINGOCOCCAL VACCINES (B) Aged Out N o longer eligible based on patient's age to complete this topic Medical Devices Not on [place] [id number] [facility] [place] [id number] [facility] [address] [facility] [address] [facility] CHOICE [facility] CHOICE [employer]ANCE Care Teams Hot Room Attendant Relationship Specialty Start Date End Date Lucian Terrazas MD [address] [place] [id number] PCP - General Internal Medicine 10/30/21 Additional Source Comments The information contained in this document represents components of the legal health record. It is not the complete legal health record.[facility]
== END 2025-03-26 12:36 | disposition home or self-care (01) ==
LOC: HO.HGI 12:13
PROVIDERS: PCP Physician Assistant; Visit Provider Nurse Practitioner Family
DX: K21.9 Gastro-esophageal reflux disease without esophagitis (principal); R14.0 Abdominal distension (gaseous)
CPT/HCPCS: 99213

== ENCOUNTER 2025-06-17 06:17 | Outpatient (REF) | payer OTHER, SELFPAY ==
--- OUTSIDE RECORDS SUMMARY | 2025-06-17 06:19 | XMS_ITS | Clinical Summary ---
Author Organization [facility] Address [address] [place] [phone] Phone Care Team Providers Care Nursing Coordinator Name Role Phone Lucian Terrazas MD Primary [...] 2) 2003 Adult Td,Tdap Booster 03/26/2021 03/26/2011 INFLUENZA VACCINE (#1) 2025 COVID-19 VACCINE (4 - 2024-2 6 season) 2025 09/19/2021, 11/22/2020, 11/01/2020 LIPID PANEL 07/03/2026 07/03/2021 [...] topic Medical Devices Not on file Insurance [facility] CHOICE [address] [facility] [place] [id number] [employer] Care Teams Nursing Coordinator Relationship Specialty Start Date End Date Lucian Terrazas MD [address] [place] [phone] PCP - General Internal Medicine 10/30/21 Additional Source Comments The information contained in this document represents components of the legal health record. It is not the complete legal health record.[facility]
[2025-06-17 07:13] LABS: Hematocrit 34.8 % (42.0-52.0); Hemoglobin 11.4 g/dl (14.0-18.0); Mean Corpuscular HGB Conc 32.8 g/dl (31.0-36.0); Mean Corpuscular Hemoglobin 32.8 pg (27.0-33.0); Mean Corpuscular Volume 100.0 fL (80.0-98.0); NRBC Abs Auto 0.000 X10*3/uL (0.0-0.012); NRBC Pct Auto 0.0 /100WBC (0.0-0.2); Platelet Count 241 X10*3/uL (160-400); Red Blood Count 3.48 X10*6/uL (4.60-5.80); White Blood Count 4.4 X10*3/uL (4.8-10.8)
[2025-06-17 07:46] LABS: Alanine Aminotransferase 17 U/L (0-40); Albumin Level 4.3 g/dL (3.5-5.0); Alkaline Phosphatase 63 U/L (39-117); Anion Gap 12 (12-20); Aspartate Amino Transferase 24 U/L (5-37); Blood Urea Nitrogen 33 mg/dL (9-16); Calcium 9.1 mg/dL (8.4-10.2); Carbon Dioxide 28 mmol/L (22-29); Chloride 104 mmol/L (96-108); Cholesterol 166 mg/dL (<200); Estimated Glomerular Filt Rate 46; HDL Cholesterol 44 mg/dL (>40); Potassium 4.8 mmol/L (3.3-5.1); Sodium 139 mmol/L (135-145); Total Protein 6.7 g/dL (6.5-8.0); Triglycerides 147 mg/dL (<150)
== END 2025-06-17 06:18 | disposition home or self-care (01) ==
LOC: HO.LAB 06:17
PROVIDERS: PCP Physician Assistant; Visit Provider Physician Assistant
DX: E11.65 Type 2 diabetes mellitus with hyperglycemia (principal); E78.2 Mixed hyperlipidemia; I10 Essential (primary) hypertension
CPT/HCPCS: 36415; 80048; 80053; 80061; 83036; 85027

== ENCOUNTER 2025-06-19 10:11 | Outpatient (AMB) | payer OTHER, SELFPAY ==
--- NOTE | 2025-06-19 10:19 | MHC.PC.OV ---
Vital Signs 06/19/25 10:20 06/19/25 11:08 Height 5 ft 2.99 in Weight 185 lb BMI 32.8 BP 136/78 118/72 Blood Pressure Location Lt brachial Position Sitting Pulse 84 Pulse Source Pulse Oximeter Temp 97.3 F Temp Source Temporal Artery Scan Pulse Oximetry (%) 98 Oxygen Delivery Method Room Air Intake Visit Reasons: Annual Exam Allergies ciprofloxacin (CIPROFLOXACIN) Allergy (Severe, Verified 06/19/25 10:49) Anaphylaxis semaglutide (From Ozempic) Adverse Reaction (Intermediate, Verified 06/19/25 10:49) Abdominal Pain naproxen Adverse Reaction (Mild, Verified 06/19/25 10:49) Abdominal Pain Medication List - Last Reconciled 06/19/25 by Trey Lin PA-C albuterol sulfate 90 mcg/actuation 2 puffs inhalation Q6H PRN 30 days atorvastatin 20 mg PO DAILY 90 days blood sugar diagnostic (FreeStyle Lite Strips) Testing once a day blood-glucose meter (FreeStyle [place] kit) Testing once a day blood-glucose meter (FreeStyle Lite Meter kit) As directed fluticasone propionate 50 mcg/actuation (Allergy Relief (fluticasone)) 2 sprays intranasal DAILY PRN 30 days glipizide ER 5 mg PO DAILY 90 days Held on 01/14/25. Instructions: Doctor's Order hydrochlorothiazide 25 mg PO DAILY 90 days loperamide 2 mg PO Q8H PRN 7 days metformin 1,000 mg PO BID 90 days multivitamin with iron 1 tab PO DAILY olmesartan 40 mg PO DAILY 90 days ondansetron 4 mg PO Q8H PRN 10 days pioglitazone 30 mg PO DAILY 90 days polyethylene glycol 3350 (Miralax) 17 grams PO DAILY Tobacco use date assessed: 06/19/25 Fall risk assessment: No Falls in past year Last assessed Fall Risk: 06/19/25 Dental Screening Dental Screen Date: 06/19/25 Did you have a dental visit in the last 12 months?: No Did you have a dental problem in the last 6 months where you did not have access to dental care?: No Was dental information given to patient?: No HPI Annual Exam HPI Details Patient is a 70-year-old male here today for a routine annual physical Patient has a past medical history significant for type 2 diabetes, hypertension, obesity, hyperlipidemia. Concern--> The patient reports tendinitis in his right shoulder, a diagnosis made by his chiropractor, and he suspects he also has it in his left shoulder. 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 Pain in the left shoulder awakens him from sleep, forcing him to change positions. He notes that stretching helps but does not completely resolve the issue. .. Type 2 diabetes:? Patient's blood sugars have been much better. Patient was placed back on glipizide 5 mg. Has been trialed on Ozempic though was not able to tolerate due to GI side effects. He continues on pioglitazone 15 mg and metformin 2 g daily. Today's A1c is 6.8 .. Chronic kidney disease stage III: Have noted impaired renal function over the last 6 months. Most recent creatinine 1.5, GFR 42. PLAN: Continues on ARB, add on Jardiance for renal protection, will reduce his metformin to 500 b.i.d. .. Hypertension:? Blood pressure today in office acceptable.? He denies any headaches, chest discomforts are dizziness.? He does not monitor his blood pressure at home and will start doing so. .. Chronically elevated PSA: Followed by Urology, denies any urinary symptoms. Has chronically elevated PSA around 13. Reports he has had biopsies an evaluations though no cancer. .. Class 1 Obesity: Unfortunately has gained weight since last office visit.? Patient does understand his BMI is over 30 will work on being more physically active and adapting to better eating habits to reduce weight .. GERD: Continues on PPI, has been avoiding? GI irritant food. Colonoscopy: Colonoscopy done in October of 2023, tubular adenoma polyps found, repeat 3 years . Vaccines: Up-to-date with COVID vaccine, tetanus, considering pneumonia and shingles vaccines, declines flu vaccine Laboratory Tests 08/10/24 01/11/25 06/17/25 06:38 06:30 06:36 Hgb 11.4 L MCV 100.5 H 100.9 H 100.0 H Plt Count 241 Creatinine 1.61 H 1.51 H Fasting Glucose 157 H 155 H Hemoglobin A1c % 7.0 H 6.8 H LDL Cholesterol, C alc 107 H 93 PFSH Medical History Tubular adenoma of colon Diverticulitis Obstructive sleep apnea (adult) (pediatric) Obesity Diabetes mellitus type II, controlled Inflammatory arthritis Osteoarthritis of hand Erectile dysfunction Decreased libido Elevated prostate specific antigen [PSA] Umbilical hernia Essential (primary) hypertension Gastro-esophageal reflux disease without esophagitis Type 2 diabetes mellitus with hyperglycemia Generalized anxiety disorder Basal cell carcinoma of skin Surgical History History of nasal surgery History of umbilical hernia repair Family History Sister Intestinal cancer Mother No problems noted. Father No problems noted. Paternal Grandfather No problems noted. Social History Housing: House Alcohol intake: current Alcohol intake frequency: 0-2 drinks per day Alcohol type: wine Patient Tobacco Use Status: Former Tobacco user Tobacco use type: Cigarette e-Cigarette/Vaping Use: Never Used Second Hand Smoke Exposure: Yes service: No Current occupational status: retired Current occupation: [employer] at [employer] [place] Current occupational exposures/hazards: No Cognitive needs: No Hearing needs: No Vision needs: Yes (Glasses) Questionnaire PHQ-9 Over the last 2 weeks, how often have you been bothered by any of the following problems? 1. Little interest or pleasure in doing things: not at all 2. Feeling down, depressed, or hopeless: not at all 3. Trouble falling or staying asleep, or sleeping too much: nearly every day 4. Feeling tired or having little energy: more than half the days 5. Poor appetite or overeating: not at all 6. Feeling bad about yourself - or that you are a failure or have let yourself or your family down: not at all 7. Trouble concentrating on things, such as reading the newspaper or watching television: not at all 8. Moving or speaking so slowly that other people could have noticed. Or the opposite - being so fidgety or restless that you have been moving around a lot more than usual: not at all 9. Thoughts that you would be better off or of hurting yourself in some way: not at all Total score: 5 Depression Screening Interpretation: Positive Depression Screening Follow-up: Existing condition Depression Screening Done: Yes 30970 - PHQ-9 Billing: Patient declined-do not bill Source: Developed by Drs. Refugio Eduardo, Mya Salamanca, Reid Inman and colleagues, with an educational sahil from [employer]. Thrive Questionnaire Date Thrive assessed: 01/14/25 I am a: Patient What is your living situation today?: I have a steady place to live Within the past 12 months, did the food you bought not last and you didn't have the money to get more?: Never true Within the past 12 months, did you worry whether your food would run out before you got money to buy more?: Never true Do you have trouble paying for medicines?: No Do you have trouble getting transportation to medical appointments?: No Do you have trouble paying your heating and electricity bill?: No Do you have trouble taking care of your child, family member or friend?: No Do you have trouble with day-to-day activities such as bathing, preparing meals, shopping, managing finances, etc.?: No Are you currently unemployed and looking for a job?: No Are you interested in more education?: No Please select the resources that you would like help with: None Currently or been in a relationship where the following occur: No concerns reported THRIVE Score: 0 AUDIT C Alcohol Use Questionnaire (AUDIT-C) 1. How often do you have a drink containing alcohol?: 2-4 times a month 2. How many drinks containing alcohol do you have on a typical day when you are drinking?: 1 or 2 3. How often do you have six or more drinks on one occasion?: Never Total Score: 2 ELVIE-7 AMB Questionnaire ELVIE-7 Date ELVIE - 7 assessed: 01/14/25 Feeling nervous, anxious, or on edge: 0 = Not at all Not being able to stop or control worryin = Not at all Worrying too much about different things: 0 = Not at all Trouble relaxin = Not at all Being so restless that it is hard to sit still: 0 = Not at all Becoming easily annoyed or irritable: 0 = Not at all Feeling afraid as if something awful might happen: 0 = Not at all Total ELVIE-7 score (0-4 normal; 5-9 mild; 10-14 moderate; 15-21 severe): 0 Source: Developed by Drs. Refugio Eduardo, Mya Salamanca, Reid Inman and colleagues, with an educational sahil from [employer]. Review of Systems Const Denies body aches, Denies chills, Denies excessive sweating, Denies fatigue, Denies fever(s) and Denies headache(s) Eyes Denies blurry vision ENT Denies dysphagia, Denies vertigo, Denies dizziness, Denies headache(s), Denies hearing loss and Denies tinnitus Card Denies chest pain, Denies chest pain with activity, Denies syncope, Denies irregular heart rhythm and Denies dyspnea Resp Denies chest congestion, Denies cough, Denies hemoptysis, Denies dyspnea and Denies wheezing GI Denies abdominal pain, Denies melena, Denies hematochezia, Denies coffee ground emesis, Denies dysphagia, Denies diarrhea, Denies nausea and Denies vomiting Denies difficulty urinating, Denies dysuria, Denies urinary frequency, Denies urinary hesitancy and Denies urinary urgency Musc Denies arthralgias, Denies limited range of motion, Denies muscle cramps and Denies muscle weakness Skin/Breast Denies rash and Denies skin ulcer Neuro Denies Abnormal speech present, Denies confusion, Denies vertigo, Denies dizziness, Denies syncope, Denies headache(s), Denies memory loss and Denies seizure-like activity Psych Denies anxiety, Denies confusion, Denies depression, Denies memory loss, Denies panic attacks and Denies paranoia Endo Denies excessive sweating, Denies fatigue, Denies flushing, Denies polydipsia and Denies polyuria Aller/Immun Denies wheezing Physical exam (Primary Care) Vital Signs: Last Vital Signs Temp 97.3 F 06/19/25 10:20 Pulse 84 06/19/25 10:20 BP 118/72 06/19/25 11:08 Pulse Ox 98 06/19/25 10:20 Oxygen Delivery Method Room Air 06/19/25 10:20 BMI result Body Mass Index 32.8 BMI Assessment/Plan discussion: High BMI High, discussed plan: lifestyle, weight reduction, dietary and physical activity Tobacco/Smoking Status: Tobacco use Status Tobacco use date assessed 06/19/25 06/19/25 10:25 Patient Tobacco Use Status Former Tobacco user 06/19/25 10:22 Tobacco use type Cigarette 06/19/25 10:22 e-Cigarette/Vaping Use Never Used 06/19/25 10:22 PHQ-9: PHQ-9 Score PHQ-9: Total score 5 06/19/25 10:52 Depression Screening Interpretation: Positive Depression Screening Follow-up: Existing condition Thrive Assessment: Date of Thrive Assessment Date Thrive assessed 01/14/25 06/19/25 10:22 Currently or been in a relationship where the following occur: No concerns reported Const General: cooperative, comfortable, no acute distress, alert and awake; No confusion Orientation/consciousness: oriented to person, oriented to place, patient oriented x3 and No confusion HENMT Head: Yes normocephalic Ears: external ears normal and TM's normal bilaterally Face and sinus: No sinus tenderness Mouth: Normal oral and palatal mucosa present and tongue normal Teeth and gingiva: dentition normal and gingiva normal Throat: Yes posterior oropharynx normal, Yes tonsils normal and Yes uvula midline Eyes Conjunctivae: conjunctivae normal Sclerae: sclerae normal Pupils: Equal, round and reactive pupils present EOM: EOMs intact bilaterally Direct Ophthalmoscopy: No no photophobia Neck Neck: Yes no lymphadenopathy, No tender and Yes no JVD Thyroid: Thyroid normal Carotids: no bruits Chest Chest palpation & inspection: no tenderness Resp Effort & Inspection: normal respiratory effort, no audible wheezes, not labored and no stridor Auscultation: no crackles, no rales, no rhonchi and no wheezes Cardio Jugular venous distension: no JVD Rate: regular rate, not bradycardic and not tachycardic Rhythm: regular rhythm Bruits: no carotid bruits Peripheral pulses: Peripheral pulses 2+ throughout GI Inspection: Yes normal to inspection, No abdominal wall ecchymosis and No visible herniation Palpation (GI): Soft to palpation, nontender, no guarding, not rigid and No hepatosplenomegaly present Auscultation: normoactive bowel sounds General: Yes no CVA tenderness Back/Spine/Pelvis Back: no CVA tenderness and No back tenderness Cervical Spine: cervical ROM normal Thoracic/Lumbar Spine: thoracic and lumbar spine normal to inspection, straight leg raise negative bilaterally, No thoraco-lumbar ROM limited and No lumbar spinal tenderness Skin Lesions: no lesions Rashes: no rashes Wounds: no wounds Neuro General: oriented to person, oriented to place, patient oriented x3, CN's II-XI intact bilaterally and No confusion Cranial nerves: Yes Equal, round and reactive pupils present and Yes Normal accommodation reflex present Cognition (Neuro): normal cognition Speech: No Abnormal speech present Gait exam (Neuro): Normal gait present Motor exam (neuro): 5/5 motor strength present throughout Extrem Right upper extremity: full ROM; no cyanosis Left upper extremity: full ROM; no cyanosis Right lower extremity: no edema Left lower extremity: no edema Psych Appearance: grossly normal Mental Status: mental status grossly normal Affect: normal affect Attitude: cooperative Thought process: Normal thought process present Coding Level of Care Code Est Pt Prev Care >65y(78578) Diagnoses Annual physical exam Z00.00 Type 2 diabetes mellitus with hyperglycemia, without long-term current use of insulin E11.65 Diabetes mellitus complication status: with hyperglycemia Diabetes mellitus polysomnographic technologist insulin use: without long-term use Primary hypertension I10 Hypertension type: primary hypertension Elevated PSA R97.20 Mixed hyperlipidemia E78.2 Hyperlipidemia type: mixed hyperlipidemia Class 1 obesity E66.811 Stage 3a chronic kidney disease N18.31 Chronic kidney disease stage 3 subtype: stage 3a (GFR 45-59) Tendinopathy of right shoulder M67.911 Assessment & Plan Assessment & Plan (1) Annual physical exam: Code(s): Z00.00 - Encounter for general adult medical examination without abnormal findings Category: Medical Plan: as per HPI (2) DMII (diabetes mellitus, type 2): Comment: Code(s): E11.9 - Type 2 diabetes mellitus without complications Category: Medical Qualifiers: Diabetes mellitus complication status: with hyperglycemia Diabetes mellitus polysomnographic technologist insulin use: without polysomnographic technologist use Qualified Code(s): E11.65 - Type 2 diabetes mellitus with hyperglycemia Plan: Patient's type 2 diabetes well controlled with A1c at 6.8. Due to patient's renal function declining will decrease his metformin to 500 b.i.d. and add on Jardiance 10 mg. . Will continue his current antihyperglycemic medication with goal A1c to remain below 7.0 (3) HTN (hypertension): Code(s): I10 - Essential (primary) hypertension Category: Medical Qualifiers: Hypertension type: primary hypertension Qualified Code(s): I10 - Essential (primary) hypertension Plan: Patient's blood pressure acceptable today in office. Will continue his current dose of anti hypertensive medication with goal blood pressure to be below 140/90 (4) Elevated PSA: Code(s): R97.20 - Elevated prostate specific antigen [PSA] Category: Medical Plan: As per HPI patient has a chronically elevated PSA in his followed by Urology. Has had extensive workup though no prostate malignancy found. He denies any urinary symptoms. (5) HLD (hyperlipidemia): Code(s): E78.5 - Hyperlipidemia, unspecified Category: Medical Qualifiers: Hyperlipidemia type: mixed hyperlipidemia Qualified Code(s): E78.2 - Mixed hyperlipidemia Plan: Patient's most recent lipid panel showing excellent control of his total cholesterol though LDL slightly elevated at 107, he will work on dietary modifications.. He will continue his current dose of statin therapy with goal LDL to remain below 100 (6) Class 1 obesity: Code(s): E66.811 - Obesity, class 1 Category: Medical Plan: Has gained a few lb since last office visit, Patient does understand his BMI is over 30 will work on being more physically active and adapt to better eating habits to reduce his weight (7) CKD (chronic kidney disease) stage 3, GFR 30-59 ml/min: Code(s): N18.30 - Chronic kidney disease, stage 3 unspecified Category: Medical Qualifiers: Chronic kidney disease stage 3 subtype: stage 3a (GFR 45-59) Qualified Code(s): N18.31 - Chronic kidney disease, stage 3a Plan: Will try to avoid any nephrotoxins Additionally, his metformin dose will be decreased from 1000 mg twice a day to 500 mg twice a day to mitigate potential effects on his kidney function. The patient was advised to maintain good hydration. (8) Tendinopathy of right shoulder: Code(s): M67.911 - Unspecified disorder of synovium and tendon, right shoulder Category: Medical Plan: For the patient's bilateral shoulder tendinitis, an order for physical therapy will be placed to help improve his condition. Orders: Orders Prostate Specific Antigen Scr Today R97.20 - Elevated prostate specific antigen [PSA], Z12.5 - Encounter for screening for malignant neoplasm of prostate Hemoglobin A1c Today E11.65 - Type 2 diabetes mellitus with hyperglycemia PT Evaluation and Treatment Today M51.9 - Unspecified thoracic, thoracolumbar and lumbosacral intervertebral disc disorder, M67.911 - Unspecified disorder of synovium and tendon, right shoulder Lipid Panel Today N18.31 - Chronic kidney disease, stage 3a Complete Blood Count no Diff Today K21.9 - Gastro-esophageal reflux disease without esophagitis Comprehensive [place]. Panel Fast Today I10 - Essential (primary) hypertension Medications: New empagliflozin (Jardiance) 10 mg PO DAILY 90 tabs 1RF 90 days E11.65 - Type 2 diabetes mellitus with hyperglycemia, N18.31 - Chronic kidney disease, stage 3a Changed From metformin 1,000 mg PO BID 90 days 180 tabs 1RF E11.65 - Type 2 diabetes mellitus with hyperglycemia To metformin 500 mg (1/2 x 1,000 mg) PO BID 90 tabs 1RF 90 days E11.65 - Type 2 diabetes mellitus with hyperglycemia Discontinued glipizide ER Discontinued Reason: Doctor's Order 5 mg PO DAILY 90 days 90 tabs 0RF E11.65 - Type 2 diabetes mellitus with hyperglycemia Patient Instructions: Goal: A1c to remain below 7.0, blood pressure to remain below 140/90 Barriers: Adherence to physical activity and healthy eating habits
[2025-06-19 10:20] VITALS: BP 136/78; PULSE 84; TEMP 36.3; O2SAT 98; BMI 32.8
[2025-06-19 11:08] VITALS: BP 118/72
--- OUTSIDE RECORDS SUMMARY | 2025-06-19 11:46 | XMS_ITS | Clinical Summary ---
Author Organization [facility] Address [address] [place] [phone] Phone Care Team Providers Care Shoe Handler Name Role Phone Lucian Terrazas MD Primary [...] topic Medical Devices Not on file Insurance [facility] [address] [facility] [place] [id number] [employer] Care Teams Shoe Handler Relationship Specialty Start Date End Date Lucian Terrazas MD [address] [place] [id number] PCP - General Internal Medicine 10/30/21 Additional Source Comments The information contained in this document represents components of the legal health record. It is not the complete legal health record.[facility]
== END 2025-06-19 11:15 | disposition home or self-care (01) ==
LOC: HO.HMCH 10:12
PROVIDERS: PCP Physician Assistant; Visit Provider Physician Assistant
DX: Z00.00 Encounter for general adult medical examination without abnormal findings (principal); I12.9 Hypertensive chronic kidney disease with stage 1 through stage 4 chronic kidney disease, or unspecified chronic kidney disease; E11.65 Type 2 diabetes mellitus with hyperglycemia; N18.31 Chronic kidney disease, stage 3a; R97.20 Elevated prostate specific antigen [PSA]; E78.2 Mixed hyperlipidemia; E66.811 Obesity, class 1; M67.911 Unspecified disorder of synovium and tendon, right shoulder